=== PATIENT | female | born 1970 | race Two or more races ===

== ENCOUNTER 2020-03-13 08:51 | Outpatient (REF) | payer OTHER, SELFPAY ==
[2020-03-13 09:42] LABS: COVID-19 Test Positive (Negative); IDNOW Serial# 55D5AD1C
== END 2020-03-13 08:52 | disposition home or self-care (01) ==
LOC: HO.EMPCOV 08:51
PROVIDERS: PCP Internal Medicine; Visit Provider Internal Medicine
DX: Z20.828 Contact with and (suspected) exposure to other viral communicable diseases (principal)
CPT/HCPCS: 87635; C9803

== ENCOUNTER 2020-03-17 14:00 | Emergency (ER) | payer OTHER, SELFPAY ==
[2020-03-17] VITALS (7 sets, daily range): BP systolic 90–125; BP diastolic 50–92; PULSE 92–117; RESP 17–26; TEMP 36.8–39.4; O2SAT 94–99; BMI 30.4
--- NOTE | 2020-03-17 14:45 | XR_ITS ---
EXAMINATION: XR CHEST CLINICAL INFORMATION: Evaluate for pneumonia. COMPARISON: Most recent chest radiograph dated 12/26/2019. TECHNIQUE: Frontal view of the chest was obtained. FINDINGS: Minimal patchy airspace opacity within the right lower lung, slightly more prominent when compared to the prior examination. Findings may represent atelectasis versus very early infiltrate. No pleural effusion or pneumothorax. Stable cardiomediastinal silhouette. No acute osseous abnormality. XR/XR chest 1V IMPRESSION: Minimal patchy airspace opacity in the right lower lung, slightly more prominent when compared to the prior examination. This may represent atelectasis versus very early infiltrates.
--- NOTE | 2020-03-17 14:54 | ED_ITS ---
HPI - Fever General Chief Complaint: Fever Stated Complaint: covid positive Time Seen by Provider: 03/17/20 14:32 Source: patient Mode of arrival: ambulatory Limitations: no limitations History of Present Illness HPI Narrative: 49-year-old female previously healthy here with fever for 5 days. Patient tells me 5 days ago she was seen and had a COVID test. At that time she had generalized weakness, headache and fever. She was told she was COVID positive. Since then she has had intermittent fevers which does improve with Motrin and Tylenol but returns. She also has a cough, some shortness of breath with exertion, diarrhea and body aches. No chest pain, vomiting, abdominal pain, symptoms. MD elicited complaint: fever Onset (ago): day(s) Exacerbating factors: nothing Relieving factors: nothing Associated symptoms: chills, myalgias, headache, cough, shortness of breath and diarrhea Treatments prior to arrival fever: none Related Data Home Medications Medication Instructions Recorded Confirmed buspirone 1 tab PO DAILY PRN 03/17/20 03/17/20 levothyroxine 1 tab PO QAM 03/17/20 03/17/20 Previous Rx's Medication Instructions Recorded azithromycin 250 mg PO DAILY 4 Days #4 tab 03/17/20 cefdinir 300 mg PO BID #14 cap 03/17/20 Allergies Allergy/AdvReac Type Severity Reaction Status Date / Time escitalopram [From Lexapro] Allergy Unknown palp Verified 02/23/20 12:24 Review of Systems Review of Systems: Yes all other systems are reviewed and are negative Constitutional: Constitutional: Reports no additional constitutional complaints, Reports body ache(s), Reports chills, Reports fever(s), Reports headache(s) and Reports weakness Eyes: Eyes: Reports no additional eye complaints and Denies change in vision ENT: Reports system reviewed and no additional complaints, except as documented, Denies dizziness, Reports headache(s), Denies nasal congestion, Denies nasal discharge and Denies neck pain Cardiovascular: Cardiovascular: Reports no additional cardiovascular complaints, Denies chest pain, Denies leg edema and Denies dyspnea Respiratory: Respiratory: Reports no additional respiratory complaints, Reports cough and Denies dyspnea Gastrointestinal: Gastrointestinal: Reports no additional gastrointestinal complaints, Denies abdominal pain, Reports diarrhea, Denies nausea and Denies vomiting Genitourinary: Genitourinary: Reports no additional female genitourinary complaints and Denies urinary incontinence Musculoskeletal: Musculoskeletal: Reports no additional musculoskeletal complaints, Denies back pain, Denies arthralgias, Denies joint swelling, Denies neck pain, Denies numbness and Denies tingling Integumentary/Breasts: Skin/Breast: Reports system reviewed and no additional complaints, except as docu and Denies rash Neurologic: Reports system reviewed and no additional complaints, except as documented, Denies Abnormal speech present, Denies dizziness, Reports headache(s), Denies numbness, Denies tingling and Reports weakness [facility] Past Medical History Surgical History (Updated 02/23/20 @ 12:26 by Rosmery Florian, JESS, JESSE) History of bilateral breast reduction surgery History of endometrial ablation Family History Family History (Updated 02/23/20 @ 12:30 by Rosmery Florian, JESS, JESSE) Father Colon cancer Mother HTN (hypertension) CVD (cardiovascular disease) Maternal Grandfather No problems noted. Maternal Grandmother No problems noted. Paternal Grandmother No problems noted. Paternal Grandfather No problems noted. Maternal Aunt Ovarian cancer Maternal Uncle Diabetes mellitus Son No problems noted. Son No problems noted. Son No problems noted. Sister No problems noted. Sister No problems noted. Brother No problems noted. Brother No problems noted. Brother No problems noted. Brother No problems noted. Social History Social History Alcohol intake: never Smoking Status: Never smoker Use of substances other than those prescribed or required for medical reasons: No Advance Directives: No Advance Directives Information Provided: Yes Physical Exam Vital Signs: Vital Signs: Last Vital Signs Temp 99.9 F 03/17/20 16:57 Pulse 103 H 03/17/20 16:57 Resp 20 03/17/20 16:57 BP 96/53 L 03/17/20 16:57 Pulse Ox 97 03/17/20 16:57 Body Mass Index 30.4 Const: General: cooperative, healthy appearing, comfortable and no acute distress Orientation/consciousness: patient oriented x3 Limitations: no l imitations HENMT: Head: Yes normal to inspection Ears: hearing grossly normal bilaterally General nose exam: Normal external nose present Face and sinus: Yes normal facial exam Mouth: Normal oral and palatal mucosa present Throat: Yes posterior oropharynx normal Eyes: General: appearance normal, both eyes and all related structures Pupils: Equal, round and reactive pupils present Neck: Neck: Yes normal visual inspection Chest: Chest palpation & inspection: normal inspection of the chest Resp: Effort & Inspection: normal respiratory effort Auscultation: clear to auscultation bilaterally Cardio: Rate: tachycardic Rhythm: regular rhythm Peripheral pulses: Peripheral pulses 2+ throughout GI: Inspection: Yes normal to inspection Palpation (GI): Soft to palpation and nontender Auscultation: normal bowel sounds Back/Spine/Pelvis: Thoracic/Lumbar Spine: thoracic and lumbar spine normal to inspection Skin: General skin exam: no rashes or lesions noted Neuro: General: patient oriented x3, no focal motor deficits and normal sensation to monofilament Cranial nerves: Yes Equal, round and reactive pupils present Cognition (Neuro): normal cognition Speech: No Abnormal speech present Gait exam (Neuro): Normal gait present Motor exam (neuro): 5/5 motor strength present throughout Extrem: General: Yes normal to inspection Course Course Course Narrative: 49-year-old female who is known COVID positive here with fever x5 days. On arrival the patient is febrile and tachycardic which is likely secondary to viral COVID infection. Will check chest x-ray to rule out underlying pneumonia. Will check labs, give normal saline bolus an antipyretic and reassessed. 1520- x-ray consistent with pneumonia. at this time infection is suspected. Patient received ceftriaxone and azithromycin. Labs are unremarkable. 1700- patient is feeling improved. Heart rate and temp improving. The an tibiotics were still infusing. Plan is for ambulation trial with pulse ox prior to discharge home. Sign-out to Jaspreet DOMÍNGUEZ pending above MDM - Fever Medical Records Attestation: I reviewed the patient's medical records. Lab Data Attestation: I reviewed the patient's lab results. Result diagrams: 03/17/20 15:49 03/17/20 15:49 Labs: Lab Results 03/17/20 03/17/20 03/17/20 Range/Units 15:49 15:49 15:49 WBC 3.5 L (4.8-10.8) X10*3/uL RBC 5.22 (4.20-5.50) X10*6/uL Hgb 15.0 (12.0-16.0) g/dl Hct 44.0 (37-47) % MCV 84.3 (80-98) fL MCH 28.7 (27.0-33.0) pg MCHC 34.1 (31.0-35.0) g/dl RDW 12.1 (11.0-16.0) % Plt Count 177 (160-400) X10*3/uL MPV 9.8 (9.4-12.3) fL Immature Gran % (Auto) 0.3 (0.0-0.4) % Neut % (Auto) 62.1 (45-73) % Lymph % (Auto) 33.6 (20-40) % [place] % (Auto) 3.7 (2-11) % Eos % (Auto) 0.3 (0-4) % Baso % (Auto) 0.0 (0-2) % Lymph # (Auto) 1.2 (1.2-4.9) X10*3/uL [place] # (Auto) 0.1 (0.1-1.2) X10*3/uL Eos # (Auto) 0.0 (0.0-0.4) X10*3/uL Baso # (Auto) 0.0 (0.0-0.2) X10*3/uL Abs Immat Gran (auto) 0.01 (0.00-0.03) X10*3/uL Absolute Neuts (auto) 2.2 (2.0-8.3) X10*3/uL Absolute Nucleated RBC 0.000 (0.0-0.012) X10*3/uL Nucleated RBC % (auto) 0.0 (0.0-0.2) /100WBC Sodium 137 (135-145) mmol/L Potassium 4.0 (3.3-5.1) mmol/l Chloride 102 (96-108) mmol/L Carbon Dioxide 24 (22-29) mmol/L Anion Gap 15 (12-20) BUN 9 (9-16) mg/dL Creatinine 0.81 (0.5-1.4) mg/dL Estim Creat Clear Calc 101.2 Estimated GFR > 60 Random Glucose 83 (60-115) mg/dL Lactic Acid 1.2 (0.5-2.0) mmol/L Calcium 8.3 L (8.4-10.2) mg/dL Magnesium 2.0 (1.6-2.6) mg/dL Total Bilirubin 0.2 (0.0-1.0) mg/dL Direct Bilirubin < 0.2 (0.0-0.5) mg/dL AST 22 (5-31) U/L ALT 16 (0-31) U/L Alkaline Phosphatase 68 (39-117) U/L Total Protein 7.0 (6.5-8.0) g/dL Albumin 4.0 (3.5-5.0) g/dL Imaging Data Chest x-ray: Attestation: I personally reviewed and interpreted this imaging study as follows: Radiologist's impression: EXAMINATION: XR CHEST CLINICAL INFORMATION: Evaluate for pneumonia. COMPARISON: Most recent chest radiograph dated 12/26/2019. TECHNIQUE: Frontal view of the chest was obtained. FINDINGS: Minimal patchy airspace opacity within the right lower lung, slightly more prominent when compared to the prior examination. Findings may represent atelectasis versus very early infiltrate. No pleural effusion or pneumothorax. Stable cardiomediastinal silhouette. No acute osseous abnormality. XR/XR chest 1V IMPRESSION: Minimal patchy airspace opacity in the right lower lung, slightly more prominent when compared to the prior examination. This may represent atelectasis versus very early infiltrates. Discharge Plan Discharge Clinical Impression: Pneumonia Patient Disposition: Home, Self-Care Instructions: Bacterial Pneumonia (ED) Additional Instructions: start your medications tomorrow Take Motrin or Tylenol if able as needed for fever or pain Increase fluids, rest Prescriptions: New azithromycin 250 mg tablet 250 mg PO DAILY 4 Days Qty: 4 RF: 0 cefdinir 300 mg capsule 300 mg PO BID Qty: 14 RF: 0 No Action levothyroxine 150 mcg tablet 1 tab PO QAM RF: 0 buspirone 5 mg tablet 1 tab PO DAILY PRN (Reason: anxiety) RF: 0 Referrals: Physician,Unknown [Primary Care Provider] - 2 days Stand Alone Forms: Work/School Release
[2020-03-17] MEDS: Ketorolac Tromethamine 30 MG/ML VIAL IVPUSH (15:56)
[2020-03-17] MEDS: 0.9 % Sodium Chloride 1,000 ML 999 ML IV (15:56)
[2020-03-17] MEDS: Acetaminophen 325 MG TABLET 975 MG PO (15:56)
[2020-03-17 16:04] LABS: MANUAL DIFF FLAG NO
[2020-03-17 16:07] LABS: Eosinophils Percent Auto 0.3 % (0-4); Imm Gran Abs Auto 0.01 X10*3/uL (0.00-0.03); Imm Gran Pct Auto 0.3 % (0.0-0.4); Lymphocytes Absolute Auto 1.2 X10*3/uL (1.2-4.9); Lymphocytes Percent Auto 33.6 % (20-40); Mean Corpuscular HGB Conc 34.1 g/dl (31.0-35.0); Mean Corpuscular Hemoglobin 28.7 pg (27.0-33.0); Mean Corpuscular Volume 84.3 fL (80-98); Mean Platelet Volume 9.8 fL (9.4-12.3); Monocytes Absolute Auto 0.1 X10*3/uL (0.1-1.2); Monocytes Percent Auto 3.7 % (2-11); Neutrophils Absolute Auto 2.2 X10*3/uL (2.0-8.3); Neutrophils Percent Auto 62.1 % (45-73); Platelet Count 177 X10*3/uL (160-400); Red Blood Count 5.22 X10*6/uL (4.20-5.50); Red Cell Distribution Width 12.1 % (11.0-16.0); White Blood Count 3.5 X10*3/uL (4.8-10.8)
[2020-03-17] MEDS: cefTRIAXone sodium 1 GM in 0.9 % Sodium Chloride 50 ML IV (16:07)
[2020-03-17 16:32] LABS: Lactic Acid 1.2 mmol/L (0.5-2.0)
[2020-03-17 16:37] LABS: Alanine Aminotransferase 16 U/L (0-31); Alkaline Phosphatase 68 U/L (39-117); Anion Gap 15 (12-20); Aspartate Amino Transferase 22 U/L (5-31); Bilirubin Direct < 0.2 mg/dL (0.0-0.5); Bilirubin Total 0.2 mg/dL (0.0-1.0); Blood Urea Nitrogen 9 mg/dL (9-16); Calcium 8.3 mg/dL (8.4-10.2); Carbon Dioxide 24 mmol/L (22-29); Chloride 102 mmol/L (96-108); Creatinine Clr Calc Pharmacy 101.2; Estimated Glomerular Filt Rate > 60; Glucose Random 83 mg/dL (60-115); Sodium 137 mmol/L (135-145)
[2020-03-17] MEDS: Azithromycin 500 MG in 0.9 % Sodium Chloride 250 ML 125 MG IV (16:51)
[2020-03-17] MEDS: 0.9 % Sodium Chloride 1,000 ML 999 ML IVCONT ×2 (20:05)
== END 2020-03-17 21:44 | disposition home or self-care (01) ==
PROVIDERS: Nurse Practitioner Family; Emergency Provider Emergency Medicine
DX: J18.9 Pneumonia, unspecified organism (principal); R50.9 Fever, unspecified; Z79.899 Other long term (current) drug therapy; Z20.828 Contact with and (suspected) exposure to other viral communicable diseases
CPT/HCPCS: 36415; 71045; 80048; 80076; 83605; 83735; 85025; 87040; 96361; 96365; 96375; 99284; J0456; J0696; J1885

== ENCOUNTER 2020-03-26 10:30 | Outpatient (REF) | payer OTHER, SELFPAY ==
--- NOTE | 2020-03-26 10:34 | XR_ITS ---
EXAMINATION: XR CHEST CLINICAL INFORMATION: Pneumonia. COMPARISON: Chest 03/17/2020 TECHNIQUE: 2 views of the chest were obtained. FINDINGS: The lungs are well-expanded with bibasilar patchy opacity suggestive of small pneumonic infiltrate. It is new since 03/17/2020 exam. The upper lungs are clear. The heart size and pulmonary vascularity is normal. No gross bony abnormality seen. XR/XR chest 2V IMPRESSION: Bilateral lower lobe infiltrates.
== END 2020-03-26 10:31 | disposition home or self-care (01) ==
LOC: HO.HMGCX 10:30
PROVIDERS: PCP Internal Medicine; Visit Provider Internal Medicine
DX: J18.9 Pneumonia, unspecified organism (principal)
CPT/HCPCS: 71046

== ENCOUNTER 2020-04-08 14:13 | Outpatient (REF) | payer OTHER, SELFPAY ==
--- NOTE | 2020-04-08 14:17 | XR_ITS ---
EXAMINATION: CHEST 2 VIEWS CLINICAL INFORMATION: Concern for pneumonia. COMPARISON: March 26, 2020. TECHNIQUE: PA and lateral views of the chest were obtained. FINDINGS: The cardiac silhouette is not enlarged. The mediastinal and hilar contours are unremarkable. There are neither pleural effusions nor pneumothoraces. There is improved aeration with persistent right lower lobe patchy airspace disease. The osseous structures are stable. XR/XR chest 2V IMPRESSION: Improved aeration with persistent patchy right lower lobe airspace disease. Continued follow-up to resolution is recommended.
== END 2020-04-08 14:14 | disposition home or self-care (01) ==
LOC: HO.HMGCX 14:13
PROVIDERS: PCP Internal Medicine; Visit Provider Internal Medicine
DX: J18.9 Pneumonia, unspecified organism (principal)
CPT/HCPCS: 71046

== ENCOUNTER 2020-04-24 11:38 | Outpatient (REF) | payer OTHER, SELFPAY ==
--- NOTE | 2020-04-24 11:48 | XR_ITS ---
EXAMINATION: XR CHEST CLINICAL INFORMATION: Pneumonia COMPARISON: Previous chest x-rays from earlier this month TECHNIQUE: 2 views of the chest were obtained. FINDINGS: The cardiac and mediastinal contours are normal. The previously identified bilateral lower lobe infiltrates are no longer seen. The lungs are clear. There is no pleural effusion or pneumothorax. There are degenerative changes of the spine. XR/XR chest 2V IMPRESSION: Resolved bilateral lower lobe infiltrates.
== END 2020-04-24 11:39 | disposition home or self-care (01) ==
LOC: HO.HMGCX 11:38
PROVIDERS: PCP Internal Medicine; Visit Provider Internal Medicine
DX: J18.9 Pneumonia, unspecified organism (principal)
CPT/HCPCS: 71046

== ENCOUNTER 2020-06-11 13:07 | Outpatient (REF) | payer OTHER, SELFPAY ==
[2020-06-12 09:22] LABS: BV Int Neg Control Negative (Negative); BV Int Pos Control Positive (Positive)
[2020-06-12 17:36] LABS: C. trachomatis RNA TMA NOT DETECTED (NOT DETECTED); N. gonorrhoeae RNA TMA NOT DETECTED (NOT DETECTED)
[2020-06-14 05:02] LABS: HPV mRNA E6/E7 rflx Not Detected (Not Detected)
== END 2020-06-11 13:08 | disposition home or self-care (01) ==
LOC: HO.LAB 13:07
PROVIDERS: PCP Internal Medicine; Visit Provider Obstetrics & Gynecology
DX: Z01.419 Encounter for gynecological examination (general) (routine) without abnormal findings (principal); Z11.51 Encounter for screening for human papillomavirus (HPV); N76.0 Acute vaginitis; B96.89 Other specified bacterial agents as the cause of diseases classified elsewhere; Z20.2 Contact with and (suspected) exposure to infections with a predominantly sexual mode of transmission
CPT/HCPCS: 36415; 87480; 87491; 87510; 87591; 87624; 87660; 88142

== ENCOUNTER 2020-06-21 09:37 | Outpatient (REF) | payer OTHER, SELFPAY ==
[2020-06-21 10:53] LABS: Cholesterol 184 mg/dL; HDL Cholesterol 36 mg/dL; LDL Cholesterol Calculated 128 mg/dl; Triglycerides 104 mg/dL
[2020-06-21 11:34] LABS: Thyroid Stimulating Hormone 0.17 uIU/mL (0.32-4.0)
[2020-06-22 18:07] LABS: C. trachomatis RNA TMA NOT DETECTED (NOT DETECTED); N. gonorrhoeae RNA TMA NOT DETECTED (NOT DETECTED)
== END 2020-06-21 09:38 | disposition home or self-care (01) ==
LOC: HO.LAB 09:37
PROVIDERS: PCP Internal Medicine; Visit Provider Obstetrics & Gynecology
DX: E78.1 Pure hyperglyceridemia (principal); E03.9 Hypothyroidism, unspecified
CPT/HCPCS: 36415; 80061; 84443; 87491; 87591

== ENCOUNTER 2020-06-24 14:03 | Outpatient (REF) | payer OTHER, SELFPAY ==
--- NOTE | ~2020-06-24 | XR_ITS ---
EXAMINATION: XR BILATERAL HIPS WITH AP PELVIS CLINICAL INFORMATION: Bilateral hip pain COMPARISON: None TECHNIQUE: AP view of the pelvis and single views of each hip were obtained. FINDINGS: There is bilateral hip arthritis with joint space narrowing and osteophyte formation. No fracture, dislocation or bone lesion is seen. Soft tissues are unremarkable. XR/XR hips STAR min 3V IMPRESSION: Bilateral hip arthritis.
[2020-06-24 16:43] LABS: Rheumatoid Factor < 15.0 IU/mL (<15.0)
[2020-06-24 17:48] LABS: Erythrocyte Sedimentation Rate 12 MM/HR (0-20)
[2020-06-27 14:51] LABS: Cyclic Citrullinated Peptide <16 UNITS
== END 2020-06-24 14:04 | disposition home or self-care (01) ==
LOC: HO.HMGCX 14:03
PROVIDERS: PCP Internal Medicine; Visit Provider Internal Medicine
DX: M19.90 Unspecified osteoarthritis, unspecified site (principal); M25.551 Pain in right hip; M25.552 Pain in left hip
CPT/HCPCS: 36415; 73522; 85652; 86200; 86431

== ENCOUNTER → 2020-07-05 09:30 | Outpatient (BNVA) | payer OTHER, SELFPAY | PROVIDERS: PCP Internal Medicine; Visit Provider Nurse Practitioner ==

== ENCOUNTER → 2020-07-21 20:19 | Outpatient (REF) | payer OTHER, SELFPAY | LOC: HO.SL 20:19 | PROVIDERS: PCP Internal Medicine; Visit Provider Internal Medicine | DX: G47.33 Obstructive sleep apnea (adult) (pediatric) (principal) | CPT/HCPCS: 95810 ==

== ENCOUNTER 2020-07-30 08:52 | Day surgery (SDC) | payer OTHER, SELFPAY ==
[2020-07-24 10:48] VITALS: BMI 30.4
--- NOTE | 2020-07-29 09:04 | HO.ANESPROP2 ---
Documented by User: Amelia Marcus 07/29/20 09:08 HPI - Anesthesia Eval Consult details Narrative: 49yo F for Colonoscopy PMFSH Active Problems Active Problems: All Active Problems (Updated 07/24/20 @ 11:16 by Mary Kennedy) Hypothyroidism (Acute) Hypertriglyceridemia (Acute) Annual physical exam (Acute) Rectal spasm (Acute) Hip pain (Acute) Arthritis (Acute) GRAEME (obstructive sleep apnea) (Acute) Pneumonia (Acute) Past Medical History Medical History Anxiety Arthritis Depression GERD (gastroesophageal reflux disease) Hip pain History of COVID-19 History of ectopic Hypothyroid GRAEME (obstructive sleep apnea) Pneumonia RLS (restless legs syndrome) Family History Family History Father Colon cancer Mother CVD (cardiovascular disease) Rheumatoid arthritis Thyroid condition Maternal Grandfather No problems noted. Maternal Grandmother HTN (hypertension) Diabetes mellitus CVD (cardiovascular disease) Alzheimers disease Thyroid condition Paternal Grandmother No problems noted. Paternal Grandfather No problems noted. Maternal Aunt Ovarian cancer Breast cancer Thyroid condition Maternal Uncle Diabetes mellitus Son No problems noted. Son No problems noted. Son No problems noted. Sister No problems noted. Sister No problems noted. Brother No problems noted. Brother No problems noted. Brother No problems noted. Brother No problems noted. Surgical History Surgical History History of bilateral breast reduction surgery History of bilateral salpingectomy History of endometrial ablation History of esophagogastroduodenoscopy (EGD) History of reversal of tubal ligation History of right oophorectomy History of tubal ligation Social History Social History Are you a primary administrator health care facility to a significant other at home: No Do you presently have visiting nurse or other home services: No Alcohol intake: never Smoking Status: Never smoker Use of substances other than those prescribed or required for medical reasons: No Have you been hit, kicked, punched, or otherwise hurt by someone within the past year? If so, by whom?: No Advance Directives: No Advance Directives Information Provided: No Advance Directives on File: No Recently lost weight without trying: No Sexual orientation: Straight/Heterosexual Gender identity: female Meds Allergies Allergy/AdvReac Type Severity Reaction Status Date / Time escitalopram [From Lexapro] Allergy Unknown Palpitation Verified 07/24/20 10:47 s Home Medications Medication Instructions Recorded Confirmed Last Taken Type biotin 1 mg capsule 1 mg PO DAILY 06/24/20 07/24/20 Unknown History Exam Exam Date and Time: July 29, 2020903 Height,Weight and Vital Signs: Height 5 ft 8 in Weight 90.718 kg Pertinent Lab Results Pertinent Lab Results: Laboratory Tests 03/17/20 03/17/20 15:49 15:49 WBC 3.5 L Hgb 15.0 Hct 44.0 Plt Count 177 Sodium 137 Potassium 4.0 Chloride 102 Carbon Dioxide 24 BUN 9 Creatinine 0.81 Assessment and Plan Assessment Anesthesia Assessment: Chart Reviewed Documented by User: Dang Snider 07/30/20 10:53 [facility] Past Medical History Medical History Anxiety Arthritis Depression GERD (gastroesophageal reflux disease) Hip pain History of COVID-19 History of ectopic Hypothyroid GRAEME (obstructive sleep apnea) Pneumonia RLS (restless legs syndrome) Family History Family History Father Colon cancer Mother CVD (cardiovascular disease) Rheumatoid arthritis Thyroid condition Maternal Grandfather No problems noted. Maternal Grandmother HTN (hypertension) Diabetes mellitus CVD (cardiovascular disease) Alzheimers disease Thyroid condition Paternal Grandmother No problems noted. Paternal Grandfather No problems noted. Maternal Aunt Ovarian cancer Breast cancer Thyroid condition Maternal Uncle Diabetes mellitus Son No problems noted. Son No problems noted. Son No problems noted. Sister No problems noted. Sister No problems noted. Brother No problems noted. Brother No problems noted. Brother No problems noted. Brother No problems noted. Family history of problems with anesthesia: No Surgical History Surgical History History of bilateral breast reduction surgery History of bilateral salpingectomy History of endometrial ablation History of esophagogastroduodenoscopy (EGD) History of reversal of tubal ligation History of right oophorectomy History of tubal ligation History of Problems with Anesthesia: Yes (Uncontollable tremors after one of her surgeries. Was treated with benadryl.) Social History Social History Are you a primary administrator health care facility to a significant other at home: No Do you presently have visiting nurse or other home services: No Alcohol intake: never Smoking Status: Never smoker Use of substances other than those prescribed or required for medical reasons: No Have you been hit, kicked, punched, or otherwise hurt by someone within the past year? If so, by whom?: No Advance Directives: No Advance Directives Information Provided: No Advance Directives on File: No Recently lost weight without trying: No Sexual orientation: Straight/Heterosexual Gender identity: female Meds Allergies Allergy/AdvReac Type Severity Reaction Status Date / Time escitalopram [From Lexapro] Allergy Unknown Palpitation Verified 07/24/20 10:47 s Home Medications Medication Instructions Recorded Confirmed Last Taken Type biotin 1 mg capsule 1 mg PO DAILY 06/24/20 07/24/20 Unknown History Exam Height,Weight and Vital Signs: Vital Signs Temp Pulse Resp BP Pulse Ox 07/30/20 09:23 97.7 F 92 16 116/80 98 Airway Mallampati Class: II TM Dist: >3cm Neck ROM: Full Heart: RRR Lungs: CTAB Assessment and Plan Assessment Anesthesia Assessment: Anesthesia Plan Discussed and Chart Reviewed Final Anesthetic Review NPO: Yes ASA Class: III Final Preanesthetic Review: No Changes in Pt Med Stat, Meds/Allgs Chart Reviewed, Consent Obtained/Reviewed and Anes Risks/Benef Reviewed Patient Risk: Intermediate Procedure Risk: Low Assessment/Block/Sedation in SS: Assess/Block/Sedation-SS Anesthetic Plan Anesthetic Plan: MAC: Disposition: Standard PACU
[2020-07-30 09:23] VITALS: BP 116/80; PULSE 92; RESP 16; TEMP 36.5; O2SAT 98
[2020-07-30] MEDS: Lactated Ringers 1,000 ML 100 ML IVCONT (09:27)
--- NOTE | 2020-07-30 09:30 | PC.NURSE ---
UCG not done, patient has had bilateral salpingectomy
--- NOTE | 2020-07-30 10:38 | MHC.SHP ---
Pre-Procedural Eval Section B Chief Complaint: (anal spasm);Colon cancer screening + family hx Allergies: Allergies Allergy/AdvReac Type Severity Reaction Status Date / Time escitalopram [From Lexapro] Allergy Unknown Palpitation Verified 07/24/20 10:47 s Plan I have reviewed the history and physical and performed a pertinent physical examination on my patient. No changes have occurred unless specified .YES
[2020-07-30 12:09] VITALS: BP 98/50; PULSE 84; RESP 12; TEMP 36.8; O2SAT 97
--- NOTE | 2020-07-30 12:16 | P.BOP_ITS ---
Brief Operative Note Date of Service: 07/30/20 Pre-op diagnosis: COLON CANCER SCREENING--POSITIVE FAMILY HX-FATHER. Post-op diagnosis: other (MULTIPLE POLYPS --1 >2CM @ 45CM) Procedure: COLONOSCOPY WITH HSPX3,COLD SNARE POLYPECTOMY X3. EPI INJECTION 2 SITES -TOTAL 4 CC, ENDOMARK 2 SITES-TOTAL 3 CC. START TIME: 10:29-END TIME: 11:58 AM. COMPLEX PROCEDURE. MULTIPLE POLYPS AND INTERVENTIONAL TECHNIQUES. ERBE CAUTERY USED. Implants: NONE Surgeon: Nithya Arce MD Anesthesia: MAC (CHAZ,THAO) Estimated blood loss (mL): 10 Pathology: other (A. TRANSVERSE COLON, B. HEPATIC FLEX(prox side.); C. 45cm- Large 2cm with stalk; D. 45cm-smaller polyp, e. Diminutive polyp.) Condition: stable Disposition: PACU
[2020-07-30 12:22] VITALS: BP 117/73; PULSE 74; RESP 16; O2SAT 98
--- NOTE | 2020-07-30 12:47 | W.PM.OPN ---
Operative Note Operative Note Date of Service: 07/30/20 Narrative: Pre-op diagnosis: COLON CANCER SCREENING--POSITIVE FAMILY HX-FATHER(dx @ 69) Post-op diagnosis: other (MULTIPLE POLYPS --1 >2CM @ 45CM) Procedure: COLONOSCOPY WITH HSPX3,COLD SNARE POLYPECTOMY X3. EPI INJECTION 2 SITES -TOTAL 4 CC, ENDOMARK 2 SITES-TOTAL 3 CC. START TIME: 10:29-END TIME: 11:58 AM. COMPLEX PROCEDURE. MULTIPLE POLYPS AND INTERVENTIONAL TECHNIQUES. ERBE CAUTERY USED. Implants: NONE Surgeon: Nithya Arce MD Anesthesia: MAC (CHAZ,THAO) FINDINGS: CATHY-NORMAL SPHINCTER TONE ADULT SLIM COLONOSCOPE WAS INTRODUCED WITHOUT DIFFICULTY AT ABOUT 40-50CM A LARGE POLYP WAS NOTED. APPEARED TO BE ON A STALK. DECISION WAS TO COMPLETE PROCEDURE AND RETURN TO THAT AREA ON WITHDRAWAL. SCOPE ADVANCED INTO DESCENDING AND TRANSVERSE-DIMINUTIVE POLYP REMOVED IN TRANSVERSE COLON. SCOPE HAD SOME SIGNIFICANT REDUNDANCY IN THIS AREA. EXTRINSIC ABDOMINAL PRESSURE WAS APPLIED AND I WAS ABLE TO GET INTO ASCENDING COLON AND PROCEED INTO THE CECAL CAP. APPENDICEAL ORIFICE AND ILEOCECAL VALVE WERE IDENTIFIED. SLOW WITHDRAWAL OF SCOPE EDGE OF POLYP NOTED IN FOLD OF HEPATIC FLEXURE. POSITION THIS POLYP WAS DIFFICULT. ULTIMATELY ABLE TO REMOVE WITH THE HEXAGONAL SNARE-HOT CAUTERY (ERBE), POLYP RETRIEVED. PULL THROUGH THE TRANSVERSE COLON WAS UNREMARKABLE. LARGER POLYP. PREVIOUSLY SEEN, WAS LOCATED @ 45CM. EPI INJECTION/ENDO MAKING DONE. REMOVED IN ONE PIECE WITH HSP TECHNIQUE, RETRIEVED WITH [employer]. 2 OTHER SMALLER POLYPS WERE REMOVED IN THIS AREA EXCISIONALLY AND SUBMITED SEPARATE SPEC SMALL.; DIMINUTIVE POLYP IN RECTUM REMOVED. ARV WAS CLEAR. Estimated blood loss (mL): 10 Pathology: A. TRANSVERSE COLON(Hyperplastic), B. HEPATIC FLEX(prox side.)--Tubular adenoma; C. 45cm-Large 2cm with stalk--TUBULOVILLOUS ADENOMA NO DYSPLASIA; D. 45cm-smaller polyp--TUBULOVILLOUS adenoma, E. Diminutive polyp--Hyperplastic. Pathology of specimen added prior to signing. Condition: stable Disposition: PACU PLAN; REPEAT SCREENING SHOULD BE 3 YEARS[address] PATH ON THE LARGEST POLYP was TUBULOVILLOUS ADENOMA BUT NO DYSPLASIA. PATIENT'S CHILDREN SHOULD HAVE THEIR FIRST COLONOSCOPY AROUND AGE 35. I REVIEWED ALL OF THIS WITH THE PATIENT AFTER THE PROCEDURE. 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
== END 2020-07-30 13:15 | disposition home or self-care (01) ==
PROVIDERS: PCP Internal Medicine; Visit Provider Internal Medicine Gastroenterology
PROC: 0DJD8ZZ Inspection of Lower Intestinal Tract, Via Natural or Artificial Opening Endoscopic (ICD-10-PCS; CPT 45378; principal; 2020-07-30 10:00)
DX: Z12.11 Encounter for screening for malignant neoplasm of colon (principal); K59.4 Anal spasm; Z80.0 Family history of malignant neoplasm of digestive organs; D12.3 Benign neoplasm of transverse colon; D12.5 Benign neoplasm of sigmoid colon; K62.1 Rectal polyp; K21.9 Gastro-esophageal reflux disease without esophagitis; G47.33 Obstructive sleep apnea (adult) (pediatric); Z86.16 Personal history of COVID-19; Z79.899 Other long term (current) drug therapy; Z88.8 Allergy status to other drugs, medicaments and biological substances
CPT/HCPCS: 45385; 45380; 45381; 88305; J0171

== ENCOUNTER → 2020-08-14 11:51 | Outpatient (BNVA) | payer OTHER, SELFPAY | PROVIDERS: PCP Internal Medicine; Visit Provider Nurse Practitioner ==

== ENCOUNTER → 2020-09-03 11:37 | Outpatient (BNVA) | payer OTHER, SELFPAY | PROVIDERS: PCP Internal Medicine; Visit Provider Nurse Practitioner ==

== ENCOUNTER 2020-11-21 15:43 | Outpatient (REF) | payer OTHER, SELFPAY ==
--- NOTE | ~2020-11-21 | MM_ITS ---
EXAMINATION: MM SCREENING DIGITAL BREAST TOMOSYNTHESIS, BILATERAL CLINICAL INFORMATION: Screening. Asymptomatic. Prior history breast reduction 2012. The lifetime risk of breast cancer based on the Tyrer-Cuzick Model is 9%. COMPARISON: Outside mammography: 01/15/2017, 12/28/2014 ([facility], [place]). TECHNIQUE: Digital breast tomosynthesis is performed in both the craniocaudal and mediolateral oblique views along with computer-aided detection (CAD). Synthesized 2D images are generated from the tomosynthesis. Additional left CC view is provided. FINDINGS: There are scattered areas of fibroglandular density (ACR BI-RADS breast composition Category b). Parenchymal pattern is similar to prior studies. There is some minor scarring similar to prior studies consistent with the reduction mammoplasty. There is no interval mass or architectural abnormality or developing density. No abnormal calcifications. The axilla and skin contours are unremarkable. MM/MM tomosynthesis screening BI IMPRESSION: No mammographic evidence of malignancy. ASSESSMENT: BI-RADS 2: Benign RECOMMENDATION: Routine annual mammography screening. This patient's information was entered into a reminder system with a target due date for their next mammogram.
== END 2020-11-21 15:44 | disposition home or self-care (01) ==
LOC: HO.MAMMO 15:43
PROVIDERS: Visit Provider Obstetrics & Gynecology
DX: Z12.31 Encounter for screening mammogram for malignant neoplasm of breast (principal)
CPT/HCPCS: 77063; 77067

== ENCOUNTER → 2020-12-17 13:08 | Outpatient (BNVA) | payer OTHER, SELFPAY | PROVIDERS: PCP Internal Medicine; Visit Provider Nurse Practitioner ==

== ENCOUNTER 2021-04-22 10:02 | Emergency (ER) | payer OTHER, SELFPAY ==
--- NOTE | ~2021-04-22 | XR_ITS ---
EXAMINATION: XR CHEST CLINICAL INFORMATION: Chest burning/back pain. COMPARISON: Chest 04/24/2020. TECHNIQUE: Frontal view of the chest was obtained. FINDINGS: No significant abnormality is noted involving the heart, lungs, mediastinum, bony thorax or soft tissues. XR/XR chest 1V IMPRESSION: Unremarkable examination.
--- NOTE | 2021-04-22 08:00 | ECG_ITS ---
Test Reason : chest burning Blood Pressure : / mmHG Vent. Rate : 087 BPM Atrial Rate : 087 BPM P-R Int : 148 ms QRS Dur : 080 ms QT Int : 388 ms P-R-T Axes : 052 039 033 degrees QTc Int : 466 ms Normal sinus rhythm Normal ECG No previous ECGs available Referred By: Jaya Boss Electronically Signed By:Chidi Ward
[2021-04-22 10:19] VITALS: BP 143/84; PULSE 90; RESP 19; TEMP 37.2; O2SAT 98; BMI 31.1
[2021-04-22 11:36] VITALS: BP 107/75; PULSE 81; RESP 18; TEMP 36.9; O2SAT 98
--- NOTE | 2021-04-22 11:37 | PC.NURSE ---
patient a&ox3, pt c/o lethargy, burning in her chest and back pain, 11/02, patient awaiting provider to see them, will continue to monitor.
--- NOTE | 2021-04-22 12:14 | PC.NURSE ---
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
[2021-04-22 12:19] LABS: MANUAL DIFF FLAG NO
[2021-04-22 12:20] LABS: Basophils Percent Auto 0.2 % (0-2); Eosinophils Absolute Auto 0.2 X10*3/uL (0.0-0.4); Eosinophils Percent Auto 2.9 % (0-4); Hematocrit 40.6 % (37.0-47.0); Hemoglobin 13.8 g/dl (12.0-16.0); Imm Gran Abs Auto 0.02 X10*3/uL (0.00-0.03); Imm Gran Pct Auto 0.3 % (0.0-0.4); Lymphocytes Absolute Auto 2.1 X10*3/uL (1.2-4.9); Lymphocytes Percent Auto 31.9 % (20-40); Mean Corpuscular Hemoglobin 29.3 pg (27.0-33.0); Mean Corpuscular Volume 86.2 fL (80.0-98.0); Mean Platelet Volume 9.6 fL (9.4-12.3); Monocytes Absolute Auto 0.6 X10*3/uL (0.1-1.2); Monocytes Percent Auto 8.7 % (2-11); Neutrophils Absolute Auto 3.7 x10*3/uL (2.0-8.3); Platelet Count 251 X10*3/uL (160-400); Red Blood Count 4.71 X10*6/uL (4.20-5.50); White Blood Count 6.6 X10*3/uL (4.8-10.8)
[2021-04-22 12:21] LABS: Appearance Urine HAZY; Color Urine YELLOW; Glucose Urine UA NEG (NEG); Leukocyte Esterase Urine NEG (NEG); Nitrite Urine NEG (NEG); Specific Gravity - Urine <= 1.005 (1.005-1.025); UACC Culture Trigger NO; Urine Blood 1+ (NEG); Urine Ketones NEG (NEG); Urine Protein NEG (NEG-TRACE)
[2021-04-22 12:29] LABS: Squamous Epithelial Cell Urine 1+ /LPF; WBC Urine 0 /HPF (0-4)
[2021-04-22 12:39] LABS: COVID-19 Test Negative (Negative); IDNOW Serial# 9DD0AD1C
[2021-04-22 12:41] LABS: Anion Gap 10 (12-20); Blood Urea Nitrogen 9 mg/dL (9-16); Calcium 9.9 mg/dL (8.4-10.2); Carbon Dioxide 31 mmol/L (22-29); Chloride 105 mmol/L (96-108); Creatinine Clr Calc Pharmacy 107.9; Estimated Glomerular Filt Rate > 60; Glucose Random 88 mg/dL (60-115); Potassium 4.5 mmol/L (3.3-5.1); Sodium 141 mmol/L (135-145)
[2021-04-22 12:46] LABS: Troponin-I High Sensitivity < 3.5 ng/L (<3.5-17.0)
--- NOTE | 2021-04-22 12:47 | ED.GENADULT ---
HPI - General Adult General Chief complaint: General Medical Stated complaint: Chest Pain Back Pain Time Seen by Provider: 04/22/21 12:47 Source: patient Mode of arrival: ambulatory Limitations: no limitations History of Present Illness HPI narrative: This is a 50-year-old female past medical history significant for hypothyroidism rectal spasm, constipation, GERD presenting to the emergency department with concerns of back pain, chest pain, cough, fatigue and malaise x2 days progressively worsening. 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 Patient describes her back pain as an uncomfortable intermittent stabbing sensation, and upper back, worse with movement better at rest. She describes her chest pain as soreness and pressure. She tells me it is localized to the substernal area, without radiation. She tells me she has felt fatigue over the past few days, and it seems to be progressively worsening. She has been vaccinated against COVID-19. She denies fevers, chills, shortness of breath, headache, dizziness, vision changes, weakness. Onset (ago): day(s) (2) Location: chest Radiation: non-radiation Severity: moderate Quality: other ( soreness & pressure ) Pain Consistency: constant Relieving factors: none Exacerbating factors: none Associated symptoms: other (fatigue ) Treatments prior to arrival: none Related Data Home Medications Medication Instructions Recorded Confirmed biotin 1 mg capsule 1 mg PO DAILY 06/24/20 03/13/21 Previous Rx's Medication Instructions Recorded buspirone 5 mg tablet 5 mg PO BID PRN #180 tab 06/05/20 levothyroxine 150 mcg tablet 150 mcg PO QAM #90 tab 06/28/20 CPAP machine #1 ea 08/08/20 CPAP mask #1 ea 08/08/20 CPAP tubing #1 ea 08/08/20 sennosides 8.6 mg capsule (senna) 17.2 mg PO BEDTIME PRN 30 Days #60 09/03/20 cap famotidine 40 mg tablet (Pepcid) 40 mg PO BEDTIME 30 Days #30 tab 12/17/20 imipramine HCl 10 mg tablet 10 mg PO BEDTIME 30 Days #30 tab 12/17/20 azithromycin 250 mg tablet See Rx Instructions .ROUTE 04/22/21 .COMPLEX #6 tab benzonatate 100 mg capsule 100 mg PO BID PRN #20 cap 04/22/21 Allergies Allergy/AdvReac Type Severity Reaction Status Date / Time escitalopram [From Lexapro] Allergy Unknown Palpitation Verified 03/13/21 11:33 s Review of Systems Review of Systems: Constitutional : No Weight loss, No Fever, No Chills, + Fatigue, + Malaise ENT/Mouth : No sore throat, No Rhinorrhea Eyes: No Eye Pain, No Swelling, No Redness Cardiovascular : + Chest Pain, No SOB, No Dyspnea on Exertion, No Orthopnea, No Edema, No Palpitations Respiratory : + Cough, No Sputum, No Wheezing Gastrointestinal : No Nausea, No Vomiting, No Diarrhea, No Constipation, No abdominal Pain, No Hematochezia, No Melena Genitourinary : No Dysuria, No Urinary Frequency, No Hematuria, Musculoskeletal : No joint pain, No Myalgias, No Joint Swelling, + back pain Skin : No Skin Lesions, No rash Neuro : No Weakness, No Numbness, No Dizziness, No Headache All other systems reviewed and are negative Yes all other systems are reviewed and are negative [facility] Past Medical History Attestation statement: The following information was validated with the patient. Source: old records reviewed and nursing notes reviewed Medical History Anxiety Arthritis Depression GERD (gastroesophageal reflux disease) Hip pain History of COVID-19 History of ectopic Hypothyroid GRAEME (obstructive sleep apnea) Pneumonia RLS (restless legs syndrome) Surgical History History of bilateral breast reduction surgery History of bilateral salpingectomy History of endometrial ablation History of esophagogastroduodenoscopy (EGD) History of reversal of tubal ligation History of right oophorectomy History of tubal ligation Hx of colonoscopy Family History Family History Father Colon cancer Mother CVD (cardiovascular disease) Rheumatoid arthritis Thyroid condition Maternal Grandfather No problems noted. Maternal Grandmother HTN (hypertension) Diabetes mellitus CVD (cardiovascular disease) Alzheimers disease Thyroid condition Paternal Grandmother No problems noted. Paternal Grandfather No problems noted. Maternal Aunt Ovarian cancer Breast cancer Thyroid condition Maternal Uncle Diabetes mellitus Son No problems noted. Son No problems noted. Son No problems noted. Sister No problems noted. Sister No problems noted. Brother No problems noted. Brother No problems noted. Brother No problems noted. Brother No problems noted. 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 a primary district manager primary care sales to a significant other at home: No Do you presently have visiting nurse or other home services: No Alcohol intake: never Patient Tobacco Use Status: Never used Tobacco e-Cigarette/Vaping Use: Never Used Use of substances other than those prescribed or required for medical reasons: No Advance Directives: No Advance Directives Information Provided: Yes Patient : No Current occupational status: employed Sexual orientation: Straight/Heterosexual Gender identity: Female Physical Exam Vital Signs: Vital Signs: Last Vital Signs Temp 98.2 F 04/22/21 14:19 Pulse 83 04/22/21 14:19 Resp 15 04/22/21 14:19 BP 114/70 04/22/21 14:58 Pulse Ox 99 04/22/21 14:19 BMI result Body Mass Index 31.1 VSS Appearance: Alert.? Oriented X3.? No acute distress.? Head: Normocephalic, atraumatic, no step-offs or deformities Eyes: Pupils equal, round and reactive to light.? ENT: Pharynx normal.? Neck: Normal inspection.? Neck supple.? CVS: Normal heart rate and rhythm.? Pulses normal.? Respiratory: No respiratory distress.? Breath sounds normal.? Abdomen: Soft and nontender.? Skin: Skin warm and dry.? Normal skin color.? Normal skin turgor.? Extremities: No lower extremity edema.? No calf ttp. 5/5 strength to bilateral upper and lower extremities Back: No midline tenderness, no C-spine tenderness, full range of motion, no CVA tenderness bilaterally Neuro: Oriented X 3.? No motor deficit.? No sensory deficit. Course Reevaluation(s) Reevaluation #1: CBC within normal limits. No acute electrolyte abnormalities. Troponin negative. Urine is clean. COVID negative. Time: 13:00 Reevaluation #2: D-dimer negative. Unlikely that this is a PE. PERC score 0 Patient's story is not consistent with aortic dissection, patient's vital signs are stable, she reports that the back pain is worse with movement better at rest. She also does not describe the chest pain as a tearing pain she does describes discomfort and a soreness. Blood pressures around the same bilaterally. Unlikely dissection. Likley bronchitis. URI. At this time I feel comfortable with discharge home. Time: 14:37 Medical Decision Making MDM Narrative Medical decision making narrative: [id number] YO F pmhx GERD, constipation, GRAEME presents to ED w/ complaints of back pain, dry cough, chest soreness /pressure, fatigue, malaise X2 days. 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 Vaccinated against COVID. Denies SOB. Physical examination benign. Plan is to obtain basic labs, D-dimer, troponin, chest x-ray, COVID. Medical Records Medical records reviewed: Yes I reviewed the patient's medical records. Lab Data Lab results reviewed: Yes I reviewed the patient's lab results. Result diagrams: 04/22/21 12:06 04/22/21 12:06 Labs: Lab Results 04/22/21 04/22/21 04/22/21 Range/Units 12:06 12:06 12:06 WBC 6.6 (4.8-10.8) X10*3/uL RBC 4.71 (4.20-5.50) X10*6/uL Hgb 13.8 (12.0-16.0) g/dl Hct 40.6 (37.0-47.0) % MCV 86.2 (80.0-98.0) fL MCH 29.3 (27.0-33.0) pg MCHC 34.0 (31.0-35.0) g/dl RDW 12.0 (11.0-16.0) % Plt Count 251 (160-400) X10*3/uL MPV 9.6 (9.4-12.3) fL Immature Gran % (Auto) 0.3 (0.0-0.4) % Neut % (Auto) 56.0 (45-73) % Lymph % (Auto) 31.9 (20-40) % [place] % (Auto) 8.7 (2-11) % Eos % (Auto) 2.9 (0-4) % Baso % (Auto) 0.2 (0-2) % Lymph # (Auto) 2.1 (1.2-4.9) X10*3/uL [place] # (Auto) 0.6 (0.1-1.2) X10*3/uL Eos # (Auto) 0.2 (0.0-0.4) X10*3/uL Baso # (Auto) 0.0 (0.0-0.2) X10*3/uL Abs Immat Gran (auto) 0.02 (0.00-0.03) X10*3/uL Absolute Neuts (auto) 3.7 (2.0-8.3) x10*3/uL Absolute Nucleated RBC 0.000 (0.0-0.012) X10*3/uL Nucleated RBC % (auto) 0.0 (0.0-0.2) /100WBC D-Dimer High Sensitivty NG/ML Sodium 141 (135-145) mmol/L Potassium 4.5 (3.3-5.1) mmol/L Chloride 105 (96-108) mmol/L Carbon Dioxide 31 H (22-29) mmol/L Anion Gap 10 L (12-20) BUN 9 (9-16) mg/dL Creatinine 0.76 (0.5-1.4) mg/dL Estim Creat Clear Calc 107.9 Estimated GFR > 60 Random Glucose 88 (60-115) mg/dL Calcium 9.9 D (8.4-10.2) mg/dL Troponin I High Sens < 3.5 (<3.5-17.0) ng/L Urine Color Urine Appearance Urine pH (5.0-8.0) Ur Specific [place] (1.005-1.025) Urine Protein (NEG-TRACE) MG/DL Urine Glucose (UA) (NEG) MG/DL Urine Ketones (NEG) MG/DL Urine Blood (NEG) Urine Nitrite (NEG) Ur Leukocyte Esterase (NEG) Urine RBC (0) /HPF Urine WBC (0-4) /HPF Ur Squamous Epith Cells /LPF Urine Bacteria /LPF COVID-19 (EDEL) (Negative) COVID-19 Clin Com 04/22/21 04/22/21 04/22/21 Range/Units 12:07 12:11 14:05 WBC (4.8-10.8) X10*3/uL RBC (4.20-5.50) X10*6/uL Hgb (12.0-16.0) g/dl Hct (37.0-47.0) % MCV (80.0-98.0) fL MCH (27.0-33.0) pg MCHC (31.0-35.0) g/dl RDW (11.0-16.0) % Plt Count (160-400) X10*3/uL MPV (9.4-12.3) fL Immature Gran % (Auto) (0.0-0.4) % Neut % (Auto) (45-73) % Lymph % (Auto) (20-40) % [place] % (Auto) (2-11) % Eos % (Auto) (0-4) % Baso % (Auto) (0-2) % Lymph # (Auto) (1.2-4.9) X10*3/uL [place] # (Auto) (0.1-1.2) X10*3/uL Eos # (Auto) (0.0-0.4) X10*3/uL Baso # (Auto) (0.0-0.2) X10*3/uL Abs Immat Gran (auto) (0.00-0.03) X10*3/uL Absolute Neuts (auto) (2.0-8.3) x10*3/uL Absolute Nucleated RBC (0.0-0.012) X10*3/uL Nucleated RBC % (auto) (0.0-0.2) /100WBC D-Dimer High Sensitivty < 150 NG/ML Sodium (135-145) mmol/L Potassium (3.3-5.1) mmol/L Chloride (96-108) mmol/L Carbon Dioxide (22-29) mmol/L Anion Gap (12-20) BUN (9-16) mg/dL Creatinine (0.5-1.4) mg/dL Estim Creat Clear Calc Estimated GFR Random Glucose (60-115) mg/dL Calcium (8.4-10.2) mg/dL Troponin I High Sens (<3.5-17.0) ng/L Urine Color YELLOW Urine Appearance HAZY Urine pH 7.0 (5.0-8.0) Ur Specific [place] <= 1.005 (1.005-1.025) Urine Protein NEG (NEG-TRACE) MG/DL Urine Glucose (UA) NEG (NEG) MG/DL Urine Ketones NEG (NEG) MG/DL Urine Blood 1+ H (NEG) Urine Nitrite NEG (NEG) Ur Leukocyte Esterase NEG (NEG) Urine RBC 1-4 (0) /HPF Urine WBC 0 (0-4) /HPF Ur Squamous Epith Cells 1+ /LPF Urine Bacteria NONE /LPF COVID-19 (EDEL) Negative (Negative) COVID-19 Clin Com See Note Imaging Data Chest x-ray: Attestation: I personally reviewed and interpreted this imaging study as follows: Radiologist's impression: FINDINGS: No significant abnormality is noted involving the heart, lungs, mediastinum, bony thorax or soft tissues. XR/XR chest 1V IMPRESSION: Unremarkable examination. ECG Data Attestation: I personally reviewed and interpreted this ECG as follows: Prior ECG tracings: not available for review Interpretation: Ventricular rate of 87, [place] normal, QRS normal, QT/QTC normal. EKG shows normal sinus rhythm. No ST elevations or inversions. No acute ischemia. No previous EKGs to compare with Critical Care Time Critical Care Time Critical Care Time: No Discharge Plan Discharge Clinical Impression: Bronchitis, Chest pain not due to acute coronary syndrome, Back pain Patient Disposition: Home, Self-Care Instructions: Acute Bronchitis (ED), Chest Wall Pain (ED) Additional Instructions: Take your medications as prescribed. If you were prescribed antibiotics today, it is important that you take your medication to their entirety, do not skip any doses, do not finish them early. Follow-up with your primary care provider this week. Return to the emergency department with new or worsening symptoms. In case of emergency call 911 You tested negative for COVID-19 today. I recommend to retest in 3-4 days. Prescriptions: New azithromycin 250 mg tablet See Rx Instructions .ROUTE .COMPLEX Qty: 6 RF: 0 benzonatate 100 mg capsule 100 mg PO BID PRN (Reason: cough) Qty: 20 RF: 0 No Action buspirone 5 mg tablet 5 mg PO BID PRN (Reason: anxiety) Qty: 180 RF: 2 levothyroxine 150 mcg tablet 150 mcg PO QAM Qty: 90 RF: 3 (DME) CPAP machine See Rx Instructions .Route .MEDSUPPLY Qty: 1 RF: 0 (DME) CPAP tubing See Rx Instructions .Route .MEDSUPPLY Qty: 1 RF: 0 (DME) CPAP mask See Rx Instructions .Route .MEDSUPPLY Qty: 1 RF: 0 biotin 1 mg capsule 1 mg PO DAILY RF: 0 senna 8.6 mg capsule 17.2 mg PO BEDTIME PRN (Reason: constipation) 30 Days Qty: 60 RF: 6 imipramine HCl 10 mg tablet 10 mg PO BEDTIME 30 Days Qty: 30 RF: 6 famotidine [Pepcid] 40 mg tablet 40 mg PO BEDTIME 30 Days Qty: 30 RF: 6 Referrals: Beba Crook MD [Primary Care Provider] - 2 days Stand Alone Forms: Work/School Release Interventions: ED Discharge Assessment Last Done: 04/22/21 15:54 Discharge Date/Time: 04/22/21 15:59
[2021-04-22 14:19] VITALS: BP 133/72; PULSE 83; RESP 15; TEMP 36.8; O2SAT 99
[2021-04-22 14:33] LABS: D Dimer High Sensitivity < 150 NG/ML
[2021-04-22 14:56] VITALS: BP 114/65
[2021-04-22 14:58] VITALS: BP 114/70
== END 2021-04-22 15:59 | disposition home or self-care (01) ==
PROVIDERS: Physician Assistant; Emergency Provider Emergency Medicine; PCP Internal Medicine
DX: M54.9 Dorsalgia, unspecified (principal); J40 Bronchitis, not specified as acute or chronic; R07.89 Other chest pain; Z20.822 Contact with and (suspected) exposure to COVID-19
CPT/HCPCS: 36415; 71045; 80048; 81001; 84484; 85025; 85379; 87635; 93005; 99284; 99285

== ENCOUNTER 2021-07-09 06:56 | Outpatient (REF) | payer OTHER, SELFPAY ==
[2021-07-09 07:25] LABS: Hematocrit 41.5 % (37.0-47.0); Mean Corpuscular HGB Conc 33.7 g/dl (31.0-35.0); Mean Corpuscular Hemoglobin 28.8 pg (27.0-33.0); Mean Corpuscular Volume 85.4 fL (80.0-98.0); Mean Platelet Volume 9.6 fL (9.4-12.3); Platelet Count 294 X10*3/uL (160-400); Red Blood Count 4.86 X10*6/uL (4.20-5.50); Red Cell Distribution Width 11.9 % (11.0-16.0); White Blood Count 6.9 X10*3/uL (4.8-10.8)
[2021-07-09 07:50] LABS: Alanine Aminotransferase 13 U/L (0-31); Albumin Level 4.1 g/dL (3.5-5.0); Alkaline Phosphatase 74 U/L (39-117); Anion Gap 13 (12-20); Aspartate Amino Transferase 15 U/L (5-31); Bilirubin Total 0.3 mg/dL (0.0-1.0); Blood Urea Nitrogen 11 mg/dL (9-16); Calcium 9.5 mg/dL (8.4-10.2); Carbon Dioxide 25 mmol/L (22-29); Chloride 105 mmol/L (96-108); Cholesterol 222 mg/dL; Estimated Glomerular Filt Rate > 60; Glucose Fasting 98 mg/dL (60-99); HDL Cholesterol 39 mg/dL; LDL Cholesterol Calculated 137 mg/dl; Potassium 4.1 mmol/L (3.3-5.1); Sodium 139 mmol/L (135-145); Total Protein 7.1 g/dL (6.5-8.0); Triglycerides 231 mg/dL
[2021-07-09 08:13] LABS: TSH reflex Free T4 30.01 uIU/mL (0.32-4.0)
[2021-07-09 08:45] LABS: Free T4 (Free Thyroxine) 0.88 ng/dL (0.71-1.85)
== END 2021-07-09 06:57 | disposition home or self-care (01) ==
LOC: HO.LAB 06:56
PROVIDERS: PCP Internal Medicine; Visit Provider Internal Medicine
DX: Z00.00 Encounter for general adult medical examination without abnormal findings (principal); E03.9 Hypothyroidism, unspecified; E78.1 Pure hyperglyceridemia
CPT/HCPCS: 36415; 80053; 80061; 84439; 84443; 85027

== ENCOUNTER 2021-09-02 14:45 | Outpatient (REF) | payer OTHER, SELFPAY ==
[2021-09-02 16:49] LABS: Free T4 (Free Thyroxine) 1.57 ng/dL (0.71-1.85)
== END 2021-09-02 14:46 | disposition home or self-care (01) ==
LOC: HO.LAB 14:45
PROVIDERS: PCP Internal Medicine; Visit Provider Internal Medicine
DX: E03.9 Hypothyroidism, unspecified (principal)
CPT/HCPCS: 36415; 84439; 84443

== ENCOUNTER 2021-10-17 10:39 | Outpatient (REF) | payer OTHER, SELFPAY ==
[2021-10-17 12:00] LABS: TSH reflex Free T4 4.75 uIU/mL (0.32-4.0)
[2021-10-17 13:51] LABS: Free T4 (Free Thyroxine) 1.09 ng/dL (0.71-1.85)
== END 2021-10-17 10:40 | disposition home or self-care (01) ==
LOC: HO.LAB 10:39
PROVIDERS: PCP Internal Medicine; Visit Provider Internal Medicine
DX: E03.9 Hypothyroidism, unspecified (principal)
CPT/HCPCS: 36415; 84439; 84443

== ENCOUNTER 2021-11-07 13:51 | Outpatient (REF) | payer OTHER, SELFPAY ==
[2021-11-07 17:01] LABS: TSH reflex Free T4 1.71 uIU/mL (0.32-4.0)
== END 2021-11-07 13:52 | disposition home or self-care (01) ==
LOC: HO.HMGCLDS 13:51
PROVIDERS: Visit Provider Internal Medicine
DX: Z00.00 Encounter for general adult medical examination without abnormal findings (principal); E03.9 Hypothyroidism, unspecified
CPT/HCPCS: 36415; 84443

== ENCOUNTER 2022-04-07 09:17 | Outpatient (REF) | payer OTHER, SELFPAY ==
--- NOTE | ~2022-04-07 | US_ITS ---
EXAMINATION: US PELVIS CLINICAL INFORMATION: Hypertrophy of uterus. COMPARISON: None. TECHNIQUE: Ultrasound of the pelvis is performed using both transabdominal and transvaginal transducers along with Doppler. Transvaginal imaging is performed due to inadequate visualization transabdominally. FINDINGS: The uterus measures 11.4 x 8 x 7.9 cm in dimension. There are multiple hypoechoic uterine lesions suggestive of fibroids. At least 9 focal lesions are seen. The largest measure 3.8 x 2.9 x 2.8 cm in the left fundus or upper uterine body, 2.8 x 2.4 x 2.7 cm in the left uterine body, 3.5 x 3.7 x 3.4 cm in the right fundus or upper uterine body and 2.1 x 1.9 x 1.7 cm the uterine body near the endometrium. Endometrial thickness measures 0.8 cm. There are nabothian cysts in the cervix. The left ovary has been removed. The right ovary measures 4.2 x 3 x 2.9 cm. There are 2 small simple right ovarian cysts, largest measuring 2.3 x 1.6 x 1.9 cm. There is no fluid in the pelvis. US/US pelvic and transvaginal IMPRESSION: Enlarged fibroid uterus. Normal-appearing right ovary.
== END 2022-04-07 09:18 | disposition home or self-care (01) ==
LOC: HO.US 09:17
PROVIDERS: Visit Provider Obstetrics & Gynecology
DX: N85.2 Hypertrophy of uterus (principal)
CPT/HCPCS: 76830; 76856

== ENCOUNTER 2022-04-13 13:58 | Outpatient (REF) | payer OTHER, SELFPAY ==
--- NOTE | ~2022-04-13 | MM_ITS ---
EXAMINATION: MM SCREENING DIGITAL BREAST TOMOSYNTHESIS, BILATERAL CLINICAL INFORMATION: Screening. Asymptomatic. Remote prior reduction mammoplasty, 2012. The lifetime risk of breast cancer based on the Tyrer-Cuzick Model is 9%. COMPARISON: Mammography: 11/21/2020; outside mammography 01/15/2017 ([facility], [place]). TECHNIQUE: Digital breast tomosynthesis is performed in both the craniocaudal and mediolateral oblique views along with computer-aided detection (CAD). Synthesized 2D images are generated from the tomosynthesis. FINDINGS: There are scattered areas of fibroglandular density (ACR BI-RADS breast composition Category b). Parenchymal pattern is similar to prior exams. Minor scarring consistent with the reduction mammoplasty is again demonstrated. There is no interval mass or architectural abnormality or developing density. No abnormal calcifications. The axilla are unremarkable. The skin contours are smooth. No significant changes. MM/MM tomosynthesis screening BI IMPRESSION: No mammographic evidence of malignancy. ASSESSMENT: BI-RADS 2: Benign RECOMMENDATION: Routine annual mammography screening. This patient's information was entered into a reminder system with a target due date for their next mammogram.
== END 2022-04-13 13:59 | disposition home or self-care (01) ==
LOC: HO.MAMMO 13:58
PROVIDERS: PCP Internal Medicine; Visit Provider Obstetrics & Gynecology
DX: Z12.31 Encounter for screening mammogram for malignant neoplasm of breast (principal)
CPT/HCPCS: 77063; 77067

== ENCOUNTER → 2022-04-30 12:39 | Outpatient (BNVA) | payer OTHER, SELFPAY | PROVIDERS: PCP Internal Medicine; Visit Provider Obstetrics & Gynecology | DX: Z13.89 Encounter for screening for other disorder (principal) ==

== ENCOUNTER 2022-05-01 13:22 | Outpatient (REF) | payer OTHER, SELFPAY ==
[2022-05-01 14:31] LABS: Hemoglobin 13.3 g/dl (12.0-16.0); Mean Corpuscular HGB Conc 34.1 g/dl (31.0-35.0); Mean Corpuscular Hemoglobin 28.5 pg (27.0-33.0); Mean Corpuscular Volume 83.5 fL (80.0-98.0); Mean Platelet Volume 9.7 fL (9.4-12.3); Platelet Count 300 X10*3/uL (160-400); Red Blood Count 4.67 X10*6/uL (4.20-5.50); Red Cell Distribution Width 12.2 % (11.0-16.0)
[2022-05-01 15:15] LABS: HCG Quantitative < 2 mIU/mL; TSH reflex Free T4 2.54 uIU/mL (0.32-4.0)
== END 2022-05-01 13:23 | disposition home or self-care (01) ==
LOC: HO.LAB 13:22
PROVIDERS: PCP Internal Medicine; Visit Provider Obstetrics & Gynecology
DX: N93.9 Abnormal uterine and vaginal bleeding, unspecified (principal)
CPT/HCPCS: 36415; 84443; 84702; 85027

== ENCOUNTER 2022-05-21 11:04 | Outpatient (REF) | payer OTHER, SELFPAY | END 2022-05-21 11:05 | disposition home or self-care (01) | LOC: HO.LNP 11:04 | PROVIDERS: PCP Internal Medicine; Visit Provider Obstetrics & Gynecology | DX: N93.9 Abnormal uterine and vaginal bleeding, unspecified (principal) | CPT/HCPCS: 58100; 88305 ==

== ENCOUNTER 2022-06-05 10:50 | Outpatient (REF) | payer OTHER, SELFPAY ==
--- NOTE | ~2022-06-05 | US_ITS ---
EXAMINATION: US PELVIS COMPLETE CLINICAL INFORMATION: Hypertrophy of the uterus COMPARISON: Pelvic ultrasound 04/07/2022 TECHNIQUE: Transabdominal and transvaginal imaging was performed. FINDINGS: The uterus is enlarged measuring 14.0 x 6.6 x 9.8 cm. A regular homogeneous endometrium is identified measuring 0.5 cm. Nabothian cysts in the cervix. There are multiple uterine myomas including: * A 3.1 cm right subserosal fundal myoma, previously 3.7 cm. * A 4.3 cm subserosal left fundal myoma, previously 3.8 cm. * A 2.9 cm intramural left mid body myoma, previously 2.8 cm. * A 2.0 cm intramural posterior body myoma, previously 2.1 cm. The right ovary measures 4.2 x 3.0 x 2.9 cm for a volume of 15 mL. Right ovary is unremarkable in appearance. Left ovary was not identified as per report absent. There is trace simple pelvic free fluid. US/US pelvic and transvaginal IMPRESSION: Enlarged myomatous uterus, with subserosal and intramural myomas, with measurements detailed above. Unremarkable appearance of the right ovary. Left ovary was not identified.
== END 2022-06-05 10:51 | disposition home or self-care (01) ==
LOC: HO.US 10:50
PROVIDERS: Visit Provider Obstetrics & Gynecology
DX: N85.2 Hypertrophy of uterus (principal)
CPT/HCPCS: 76830; 76856

== ENCOUNTER → 2022-06-11 14:54 | Outpatient (BNVA) | payer OTHER, SELFPAY | PROVIDERS: PCP Internal Medicine; Visit Provider Obstetrics & Gynecology | DX: Z13.89 Encounter for screening for other disorder (principal) ==

== ENCOUNTER → 2022-07-20 08:49 | Outpatient (BNVA) | payer OTHER, SELFPAY | PROVIDERS: PCP Internal Medicine; Visit Provider Obstetrics & Gynecology | DX: Z13.89 Encounter for screening for other disorder (principal) ==

== ENCOUNTER 2022-11-15 11:09 | Emergency (ER) | payer OTHER, SELFPAY ==
--- NOTE | ~2022-11-15 | CT_ITS ---
EXAMINATION: HEAD CT WITHOUT CONTRAST MAXILLOFACIAL CT WITHOUT CONTRAST CLINICAL INFORMATION: Head strike, pain fall. Nasal deformity. Pain. COMPARISON: None. TECHNIQUE: Contiguous axial imaging of the head was performed without the administration of IV contrast. Axial multidetector volumetric images were also performed through the facial bones without contrast from the frontal sinuses through the mandible. Multiplanar reconstructed images in coronal and sagittal orientations were submitted. DOSE: 1198 mGy-cm FINDINGS: HEAD: There is no evidence of acute intracranial hemorrhage or territorial infarction. No abnormal mass-effect or midline shift. No extra-axial fluid collections. Benson to white matter differentiation is well preserved. The ventricles are normal in size and configuration. There is no abnormal attenuation within the brain parenchyma. No acute calvarial fracture. The visualized sinuses and mastoid air cells are clear. MAXILLOFACIAL: The mandible, maxilla, pterygoid plates, zygomatic arches, paranasal sinus hernandez, and bony orbits are intact. Slightly dysmorphic appearance of the distal aspect of the nasal bones, and with question of subtle lucencies in the right nasal bone, raises the possibility of nasal bone fracture. Nasal soft tissue swelling. Clinically correlate. Mucosal thickening in bilateral inferior maxillary sinus. No fluid levels seen in the sinuses. The remainder of the sinuses appear unremarkable. The paranasal sinuses and mastoid air cells remain well-aerated. No significant soft tissue findings. CT/CT facial bones wo IV con IMPRESSION: 1. No CT evidence of acute intracranial hemorrhage or edematous acute infarction. 2. Nasal bone findings from possible nasal bone fracture. 3. Additional findings and details as above.
--- NOTE | ~2022-11-15 | CT_ITS ---
EXAMINATION: HEAD CT WITHOUT CONTRAST MAXILLOFACIAL CT WITHOUT CONTRAST CLINICAL INFORMATION: Head strike, pain fall. Nasal deformity. Pain. COMPARISON: None. TECHNIQUE: Contiguous axial imaging of the head was performed without the administration of IV contrast. Axial multidetector volumetric images were also performed through the facial bones without contrast from the frontal sinuses through the mandible. Multiplanar reconstructed images in coronal and sagittal orientations were submitted. DOSE: 1198 mGy-cm FINDINGS: HEAD: There is no evidence of acute intracranial hemorrhage or territorial infarction. No abnormal mass-effect or midline shift. No extra-axial fluid collections. Benson to white matter differentiation is well preserved. The ventricles are normal in size and configuration. There is no abnormal attenuation within the brain parenchyma. No acute calvarial fracture. The visualized sinuses and mastoid air cells are clear. MAXILLOFACIAL: The mandible, maxilla, pterygoid plates, zygomatic arches, paranasal sinus hernandez, and bony orbits are intact. Slightly dysmorphic appearance of the distal aspect of the nasal bones, and with question of subtle lucencies in the right nasal bone, raises the possibility of nasal bone fracture. Nasal soft tissue swelling. Clinically correlate. Mucosal thickening in bilateral inferior maxillary sinus. No fluid levels seen in the sinuses. The remainder of the sinuses appear unremarkable. The paranasal sinuses and mastoid air cells remain well-aerated. No significant soft tissue findings. CT/CT head/brain wo IV con IMPRESSION: 1. No CT evidence of acute intracranial hemorrhage or edematous acute infarction. 2. Nasal bone findings from possible nasal bone fracture. 3. Additional findings and details as above.
[2022-11-15 11:18] VITALS: BP 125/78; PULSE 87; RESP 18; TEMP 36.2; O2SAT 98; BMI 30.4
--- NOTE | 2022-11-15 11:18 | ED.FALL ---
HPI - Fall General Chief Complaint: Fall Stated Complaint: Fall Time Seen by Provider: 11/15/22 12:30 Source: patient Mode of arrival: ambulatory Limitations: no limitations History of Present Illness HPI Narrative: 52-year-old female history of hypertension, CVD, diabetes, Alzheimer's disease, thyroid condition presenting to the emergency department with complaints of pain to know/face after mechanical trip and fall, patient was rearranging her bedroom, tripped on a rug, falling forward, hitting her face. Patient not on blood thinners, denies head strike, loss of consciousness. She does not have a small laceration to her nose. Complaining of severe sent added 10 pain to nose. Reports headache and general pain and swelling to her whole face. Reports nosebleed from R nare after falling which has resolved. Denies vision changes, dizziness, weakness, ringing in ears, disequilibrium, chest pain, shortness of breath, nausea, vomiting, abdominal pain. Not on thinners. Related Data Home Medications Medication Instructions Recorded Confirmed biotin 1 mg capsule 1 mg PO DAILY 06/24/20 11/07/21 Previous Rx's Medication Instructions Recorded CPAP machine #1 ea 08/08/20 CPAP mask #1 ea 08/08/20 CPAP tubing #1 ea 08/08/20 sennosides 8.6 mg capsule (senna) 17.2 mg PO BEDTIME PRN 09/03/20 constipation 30 days #60 caps famotidine 40 mg tablet (Pepcid) 40 mg PO BEDTIME 30 days #30 tabs 12/17/20 dicyclomine 10 mg capsule 20 mg PO TID #60 caps 12/10/21 simethicone 180 mg capsule 180 mg PO TID 30 days #90 caps 12/10/21 buspirone 5 mg tablet 5 mg PO BID PRN anxiety #180 tabs 02/20/22 levothyroxine 150 mcg tablet 150 mcg PO QAM #90 tabs 10/18/22 doxycycline hyclate 100 mg capsule 100 mg PO BID 10 days #20 caps 11/15/22 morphine 15 mg immediate release 15 mg PO Q6H PRN pain 5 days #10 11/15/22 tablet tabs Allergies Allergy/AdvReac Type Severity Reaction Status Date / Time escitalopram [From Lexapro] Allergy Unknown Palpitation Verified 07/20/22 09:00 s Review of Systems Review of Systems: Constitutional : No Weight loss, No Fever, No Chills, No Fatigue, No Malaise ENT/Mouth : No sore throat, No Rhinorrhea Eyes: No Eye Pain, + Swelling, No Redness Cardiovascular : No Chest Pain, No SOB, No Dyspnea on Exertion, No Orthopnea, No Edema, No Palpitations Respiratory : No Cough, No Sputum, No Wheezing Gastrointestinal : No Nausea, No Vomiting, No Diarrhea, No Constipation, No abdominal Pain, No Hematochezia, No Melena Genitourinary : No Dysuria, No Urinary Frequency, No Hematuria, Musculoskeletal : No joint pain, No Myalgias, No Joint Swelling, + nose pain +jaw pain +forehead pain Skin : No Skin Lesions, No rash Neuro : No Weakness, No Numbness, No Dizziness, + Headache Psych : No Anxiety/Panic, No Depression All other systems reviewed and are negative Yes all other systems are reviewed and are negative PMFSH Past Medical History Attestation statement: The following information was validated with the patient. Source: old records reviewed and nursing notes reviewed Medical History Anxiety Arthritis Depression GERD (gastroesophageal reflux disease) Hip pain History of COVID-19 History of ectopic Hypothyroid GRAEME (obstructive sleep apnea) Pneumonia RLS (restless legs syndrome) Surgical History History of bilateral breast reduction surgery History of bilateral salpingectomy History of endometrial ablation History of esophagogastroduodenoscopy (EGD) History of reversal of tubal ligation History of right oophorectomy History of tubal ligation Hx of colonoscopy Family History Family History Father Colon cancer Mother CVD (cardiovascular disease) Rheumatoid arthritis Thyroid condition Maternal Grandfather No problems noted. Maternal Grandmother HTN (hypertension) Diabetes mellitus CVD (cardiovascular disease) Alzheimers disease Thyroid condition Paternal Grandmother No problems noted. Paternal Grandfather No problems noted. Maternal Aunt Ovarian cancer Breast cancer Thyroid condition Maternal Uncle Diabetes mellitus Son No problems noted. Son No problems noted. Son No problems noted. Sister No problems noted. Sister No problems noted. Brother No problems noted. Brother No problems noted. Brother No problems noted. Brother No problems noted. 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 a primary acute care occupational therapist to a significant other at home: No Do you presently have visiting nurse or other home services: No Alcohol intake: never Patient Tobacco Use Status: Never used Tobacco e-Cigarette/Vaping Use: Never Used Advance Directives: No Advance Directives Information Provided: Yes Current occupational status: employed Sexual orientation: Straight/Heterosexual Gender identity: Female Cognitive needs: No Hearing needs: No Vision needs: Yes (reading glasses) Physical Exam Vital Signs: Vital Signs: Last Vital Signs Temp 98.2 F 11/15/22 12:22 Pulse 74 11/15/22 14:07 Resp 16 11/15/22 12:22 BP 117/87 11/15/22 14:07 Pulse Ox 100 11/15/22 12:22 O2 Del Method Room Air 11/15/22 12:22 BMI result Body Mass Index 30.4 vss Appearance: Alert.? Oriented X3.? No acute distress.? Head: Normocephalic, no step-offs or deformities + tenderness to palpation of nose with an abrasion overlying nose. +swelling to the nose bridge +ttp to cheeks, forehead, jaw Eyes: Pupils equal, round and reactive to light.? extraocular movements intact and pain-free. +sensitivity to light ENT: Pharynx normal.? Tympanic membranes normal bilaterally, no hemotympanum. No nasal septal hematoma Neck: Normal inspection.? Neck supple.? CVS: Normal heart rate and rhythm.? Pulses normal.? Respiratory: No respiratory distress.? Breath sounds normal.? Abdomen: Soft and nontender.? Skin: Skin warm and dry.? Normal skin color.? Normal skin turgor.? Extremities: No lower extremity edema.? No calf ttp. 5/5 strength to bilateral upper and lower extremities Back: No midline tenderness, no C-spine tenderness, full range of motion, no CVA tenderness bilaterally Neuro: Oriented X 3.? No motor deficit.? No sensory deficit. CN 2-12 intact . Normal [id number], [id number], steady tandem gait with normal coordination. NIHSS 0 Course Course Course Narrative: This is an RME: Additional HPI, ROS, PE not included below will be deferred to primary provider. Patient is a 52 year old female who presents to the emergency department for evaluation of nasal pain after mechanical trip and fall in her bedroom for an area rug last night. Denies any loss of consciousness, denies use of anticoagulants. Plan: CT facial bones Reevaluation(s) Reevaluation #1: CBC appears to be around patient's baseline she does have a leukopenia however has been present the past. No acute findings. Chemistry with no acute findings requiring intervention. Troponin negative, EKG nonischemic. EKG showing normal sinus rhythm unlikely ACS. CT scans of face and head pending as well as orthostatic vitals. Neuro exam remains nonfocal. Time: 14:04 Reevaluation #2: CT of head and brain with no acute intracranial hemorrhage or edematous acute infarction. Nasal bone findings for possible nasal bone fracture. Some incidental findings noted on CT. Advised patient to check patient portal. Educated patient on diagnosis and treatment plan, answered all question, patient verbalizes understanding. At this time patient will be discharged home, advised to return with new or worsening symptoms. Educated on worrisome signs and symptoms and when to return. At this time I feel comfortable discharge home. Discharge home with oral morphine, educated her on proper use of narcotics. Will also give doxycycline as she does have an abrasion on her nose to cover for possible infection. At time of discharge patient states her only complaint is some nose pain improved with morphine. Neuro exam remains nonfocal. Requesting work note. Time: 15:20 Medications Administered Discontinued Medications Generic Name Dose Route Start Last Admin Trade Name Freq PRN Reason Stop Dose Admin Morphine Sulfate 15 mg 11/15/22 14:08 11/15/22 14:55 Morphine Sulfate Immed Release 15 Mg Tablet PO 11/15/22 14:09 15 mg ONCE ONE Administration Medical Decision Making Medical Decision Making MDM Narrative: 52-year-old female presents status post mechanical trip and fall pain to nose after head strike. Physical exam significant for tenderness to palpation to nose, with abrasion overlying. Extraocular movements intact and pain-free. Neuro nonfocal. Patient denies preceding symptoms to fall, unlikely ACS, orthostatic hypotension, PE. This is likely mechanical fall with abrasion overlying nose, possible fracture dislocation of nose. No signs of nerve entrapment of optic nerve. No step-offs or deformities to face. Unlikely intracranial hemorrhage or stroke. Will rule out fractures or dislocations to facial bones. No signs of nasal septal hematoma or airway compromise. No signs of traumatic injury to cervical spine. No signs of traumatic injury to chest, abdomen or pelvis. Plan EKG, CT scan of head, face, orthostatic vital signs Differential Diagnosis Differential Diagnoses: The differential diagnosis associated with the presentation includes Patient denies preceding symptoms to fall, unlikely ACS, orthostatic hypotension, PE. This is likely mechanical fall with abrasion overlying nose, possible fracture dislocation of nose. No signs of nerve entrapment of optic nerve. No step-offs or deformities to face. Unlikely intracranial hemorrhage or stroke. Will rule out fractures or dislocations to facial bones. No signs of nasal septal hematoma or airway compromise. No signs of traumatic injury to cervical spine. No signs of traumatic injury to chest, abdomen or pelvis. Admission/Observation Consideration of admission/observation: Escalation of care including admission/observation considered unlikely Lab Data 11/15/22 13:04 11/15/22 13:04 Labs: Lab Results 11/15/22 11/15/22 11/15/22 Range/Units 13:04 13:04 13:04 WBC 4.7 L (4.8-10.8) X10*3/uL RBC 4.81 (4.20-5.50) X10*6/uL Hgb 13.7 (12.0-16.0) g/dl Hct 40.1 (37.0-47.0) % MCV 83.4 (80.0-98.0) fL MCH 28.5 (27.0-33.0) pg MCHC 34.2 (31.0-35.0) g/dl RDW 11.8 (11.0-16.0) % Plt Count 239 (160-400) X10*3/uL MPV 9.3 L (9.4-12.3) fL Immature Gran % (Auto) 0.2 (0.0-0.4) % Neut % (Auto) 40.8 L (45-73) % Lymph % (Auto) 45.3 H (20-40) % [place] % (Auto) 9.9 (2-11) % Eos % (Auto) 3.6 (0-4) % Baso % (Auto) 0.2 (0-2) % Lymph # (Auto) 2.1 (1.2-4.9) X10*3/uL [place] # (Auto) 0.5 (0.1-1.2) X10*3/uL Eos # (Auto) 0.2 (0.0-0.4) X10*3/uL Baso # (Auto) 0.0 (0.0-0.2) X10*3/uL Abs Immat Gran (auto) 0.01 (0.00-0.03) X10*3/uL Absolute Neuts (auto) 1.9 L (2.0-8.3) x10*3/uL Absolute Nucleated RBC 0.000 (0.0-0.012) X10*3/uL Nucleated RBC % (auto) 0.0 (0.0-0.2) /100WBC Sodium 142 (135-145) mmol/L Potassium 3.9 (3.3-5.1) mmol/L Chloride 109 H (96-108) mmol/L Carbon Dioxide 25 (22-29) mmol/L Anion Gap 12 (12-20) BUN 12 (9-16) mg/dL Creatinine 0.75 (0.5-1.4) mg/dL Estim Creat Clear Calc 105.7 Estimated GFR > 60 Random Glucose 79 (60-115) mg/dL Calcium 9.1 (8.4-10.2) mg/dL Troponin I High Sens < 2.7 (<3.5-17.0) ng/L Independent Interpretation I performed an independent interpretation of an: EKG (Ventricular rate of 76, NV normal, QRS normal, QT/QTC normal. No ST elevations or inversions concerning for acute ischemia.) and CT Scan Radiology Impression Discussion of test interpretation with radiology: I have reviewed the radiologist's reading. Critical Care Time Critical Care Time Critical Care Time: No Discharge Plan Discharge Clinical Impression: Fall, Closed fracture nasal bone Patient Disposition: Home, Self-Care Instructions: Nasal Fracture (ED), Facial Fracture (ED), Fall Prevention (ED) Additional Instructions: Take your medications as prescribed. If you were prescribed antibiotics today, it is important that you take your medication to their entirety, do not skip any doses, do not finish them early. Follow-up with your primary care provider this week. Please follow-up with ears Nose and Throat. Return to the emergency department with new or worsening symptoms. Such as fevers, chills, chest pain, shortness of breath, nausea, vomiting, dizziness, headache, vision changes, lethargy In case of emergency call 911 A narcotic has been sent to your pharmacy please take this as prescribed. Do not take more than the prescribed dose. Narcotic medications can cause addiction. Please do not mix them with alcohol. Do not take them while driving or operating machinery. Do not take them with any other narcotics. Do not share them with friends or family. They can cause constipation. Take them only for severe pain. Use caution with doxycycline as it can cause a rash in direct sunlight. Limit exposure to direct sunlight wear sun protection, clothing and sunscreen. CT/CT head/brain wo IV con IMPRESSION: 1. No CT evidence of acute intracranial hemorrhage or edematous acute infarction. 2. Nasal bone findings from possible nasal bone fracture. 3. Additional findings and details as above. Prescriptions: New doxycycline hyclate 100 mg capsule 100 mg PO BID 10 Days Qty: 20 0RF morphine 15 mg tablet 15 mg PO Q6H PRN (Reason: pain) 5 Days Qty: 10 0RF Rx Instructions: Partial Fill upon patient request. No Action (DME) CPAP machine See Rx Instructions .Route .MEDSUPPLY Qty: 1 0RF Rx Instructions: start off on auto pap mode; pressure setting 6-16cm of H2O (DME) CPAP tubing See Rx Instructions .Route .MEDSUPPLY Qty: 1 0RF Rx Instructions: As directed (DME) CPAP mask See Rx Instructions .Route .MEDSUPPLY Qty: 1 0RF Rx Instructions: As directed buspirone 5 mg tablet 5 mg PO BID PRN (Reason: anxiety) Qty: 180 2RF levothyroxine 150 mcg tablet 150 mcg PO QAM Qty: 90 0RF biotin 1 mg capsule 1 mg PO DAILY senna 8.6 mg capsule 17.2 mg PO BEDTIME PRN (Reason: constipation) 30 Days Qty: 60 6RF famotidine [Pepcid] 40 mg tablet 40 mg PO BEDTIME 30 Days Qty: 30 6RF simethicone 180 mg capsule 180 mg PO TID 30 Days Qty: 90 3RF Rx Instructions: after meals dicyclomine 10 mg capsule 20 mg PO TID Qty: 60 3RF Referrals: Mitch Ramirez [Physician] - 2 days Stand Alone Forms: Work/School Release
[2022-11-15 12:22] VITALS: BP 122/81; PULSE 85; RESP 16; TEMP 36.8; O2SAT 100
--- NOTE | 2022-11-15 12:35 | ECG_ITS ---
Test Reason : FALL Blood Pressure : / mmHG Vent. Rate : 076 BPM Atrial Rate : 076 BPM P-R Int : 164 ms QRS Dur : 080 ms QT Int : 390 ms P-R-T Axes : 054 052 052 degrees QTc Int : 438 ms Normal sinus rhythm Normal ECG When compared with ECG of 22-APR-2021 10:26, No significant change was found Referred By: Sharon Tabares Electronically Signed By:MARION GUY MD
[2022-11-15 13:08] LABS: MANUAL DIFF FLAG NO
[2022-11-15 13:10] LABS: Basophils Percent Auto 0.2 % (0-2); Eosinophils Absolute Auto 0.2 X10*3/uL (0.0-0.4); Eosinophils Percent Auto 3.6 % (0-4); Hematocrit 40.1 % (37.0-47.0); Hemoglobin 13.7 g/dl (12.0-16.0); Imm Gran Abs Auto 0.01 X10*3/uL (0.00-0.03); Imm Gran Pct Auto 0.2 % (0.0-0.4); Lymphocytes Absolute Auto 2.1 X10*3/uL (1.2-4.9); Lymphocytes Percent Auto 45.3 % (20-40); Mean Corpuscular HGB Conc 34.2 g/dl (31.0-35.0); Mean Corpuscular Hemoglobin 28.5 pg (27.0-33.0); Mean Corpuscular Volume 83.4 fL (80.0-98.0); Mean Platelet Volume 9.3 fL (9.4-12.3); Monocytes Absolute Auto 0.5 X10*3/uL (0.1-1.2); Monocytes Percent Auto 9.9 % (2-11); Neutrophils Absolute Auto 1.9 x10*3/uL (2.0-8.3); Neutrophils Percent Auto 40.8 % (45-73); Platelet Count 239 X10*3/uL (160-400); Red Blood Count 4.81 X10*6/uL (4.20-5.50); Red Cell Distribution Width 11.8 % (11.0-16.0); White Blood Count 4.7 X10*3/uL (4.8-10.8)
[2022-11-15 13:32] LABS: Anion Gap 12 (12-20); Blood Urea Nitrogen 12 mg/dL (9-16); Calcium 9.1 mg/dL (8.4-10.2); Carbon Dioxide 25 mmol/L (22-29); Chloride 109 mmol/L (96-108); Creatinine Clr Calc Pharmacy 105.7; Estimated Glomerular Filt Rate > 60; Glucose Random 79 mg/dL (60-115); Potassium 3.9 mmol/L (3.3-5.1); Sodium 142 mmol/L (135-145)
[2022-11-15 13:44] LABS: Troponin-I High Sensitivity < 2.7 ng/L (<3.5-17.0)
[2022-11-15 14:07] VITALS: BP 117/87; BP 118/79; BP 127/72; PULSE 69; PULSE 74
[2022-11-15] MEDS: Morphine Sulfate Immed Release 15 MG TABLET PO (14:55)
== END 2022-11-15 15:43 | disposition home or self-care (01) ==
PROVIDERS: Physician Assistant; Emergency Provider Emergency Medicine Emergency Medical Services; PCP Internal Medicine
DX: S02.2XXA Fracture of nasal bones, initial encounter for closed fracture (principal); W01.0XXA Fall on same level from slipping, tripping and stumbling without subsequent striking against object, initial encounter; Y93.9 Activity, unspecified; Y92.013 Bedroom of single-family (private) house as the place of occurrence of the external cause; Y99.9 Unspecified external cause status
CPT/HCPCS: 36415; 70450; 70486; 80048; 84484; 85025; 93005; 99284; 99285

== ENCOUNTER → 2022-11-15 12:35 | Outpatient (BNV) | payer OTHER, SELFPAY | PROVIDERS: Emergency Provider Emergency Medicine Emergency Medical Services; PCP Internal Medicine; Visit Provider Internal Medicine Cardiovascular Disease | DX: R55 Syncope and collapse (principal); W19.XXXA Unspecified fall, initial encounter | CPT/HCPCS: 93010 ==

== ENCOUNTER 2022-11-18 11:10 | Outpatient (AMB) | payer OTHER, SELFPAY ==
--- NOTE | 2022-11-18 11:28 | MHC.PC.OV ---
Vital Signs 11/18/22 11:30 Height 5 ft 8 in Weight 196 lb BMI 29.8 BP 118/78 Blood Pressure Location Rt brachial Position Sitting Pulse 91 Pulse Source Pulse Oximeter Pulse Oximetry (%) 99 Oxygen Delivery Method Room Air Intake Visit Reasons: Discuss getting a referral Intake Note: Pt is here today for a ER follow up visit. Pt states that last weekend she fell and she fractured her nose and she would like to be referred to a specialist. Allergies escitalopram [From Lexapro] Allergy (Unknown, Verified 11/18/22 11:34) Palpitations Medication List - Last Reconciled 11/18/22 by Beba Crook MD biotin 1 mg PO DAILY buspirone 5 mg PO BID PRN [CPAP machine start off on auto pap mode; pressure setting 6-16cm of H2O ] [CPAP mask As directed] [CPAP tubing As directed] dicyclomine 20 mg (2 x 10 mg) PO TID doxycycline hyclate 100 mg PO BID 10 days famotidine (Pepcid) 40 mg PO BEDTIME 30 days levothyroxine 150 mcg PO QAM sennosides (senna) 17.2 mg (2 x 8.6 mg) PO BEDTIME PRN 30 days simethicone 180 mg PO TID Tobacco use date assessed: 11/18/22 Dental Screening Dental Screen Date: 11/18/22 Did you have a dental visit in the last 12 months?: Yes Did you have a dental problem in the last 6 months where you did not have access to dental care?: No Was dental information given to patient?: Patient has dentist HPI Discuss getting a referral HPI Details Pt presents for PE and f/u ER visit for nose injury. CT scan showed question of nasal bone fracture. [facility] [place] Medical History Anxiety Arthritis Depression GERD (gastroesophageal reflux disease) Hip pain History of COVID-19 History of ectopic Hypothyroid GRAEME (obstructive sleep apnea) Pneumonia RLS (restless legs syndrome) Surgical History History of bilateral breast reduction surgery History of bilateral salpingectomy History of endometrial ablation History of esophagogastroduodenoscopy (EGD) History of reversal of tubal ligation History of right oophorectomy History of tubal ligation Hx of colonoscopy Family History (Updated 11/18/22 @ 11:36 by JESS Willoughby) Father Colon cancer Mother CVD (cardiovascular disease) Rheumatoid arthritis Thyroid condition Maternal Grandfather No problems noted. Maternal Grandmother HTN (hypertension) Diabetes mellitus CVD (cardiovascular disease) Alzheimers disease Thyroid condition Paternal Grandmother No problems noted. Paternal Grandfather No problems noted. Maternal Aunt Ovarian cancer Breast cancer Thyroid condition Maternal Uncle Diabetes mellitus Son No problems noted. Son No problems noted. Son No problems noted. Sister No problems noted. Sister No problems noted. Brother No problems noted. Brother No problems noted. Brother No problems noted. Brother No problems noted. Social History Housing: Apartment Are you a primary restorative care technician to a significant other at home: No Do you presently have visiting nurse or other home services: No Alcohol intake: never Patient Tobacco Use Status: Never used Tobacco e-Cigarette/Vaping Use: Never Used Current occupational status: employed Sexual orientation: Straight/Heterosexual Gender identity: Female Cognitive needs: No Hearing needs: No Vision needs: Yes (reading glasses) Female Reproductive History Menstrual Age of Menarche: 15 Questionnaire Thrive Questionnaire Date Thrive assessed: 11/07/21 AUDIT C Alcohol Use Questionnaire (AUDIT-C) 1. How often do you have a drink containing alcohol?: Never 3. How often do you have six or more drinks on one occasion?: Never Total Score: 0 JAYA-7 AMB Questionnaire JAYA-7 Date JAYA - 7 assessed: 11/07/21 Source: Developed by Drs. Tavo Ricks, Heather Sin, Alvaro Jane and colleagues, with an educational aleksandra from [employer]. Review of Systems Const All systems reviewed & are unremarkable except as noted in HPI and below Reports no additional complaints Eyes Reports no additional complaints ENT Reports no additional complaints Card Reports no additional complaints Resp Reports no additional complaints GI Reports no additional complaints Reports no additional complaints Physical exam (Primary Care) Vital Signs: Last Vital Signs Pulse 91 11/18/22 11:30 BP 118/78 11/18/22 11:30 Pulse Ox 99 11/18/22 11:30 Oxygen Delivery Method Room Air 11/18/22 11:30 BMI result Body Mass Index 29.8 Tobacco/Smoking Status: Tobacco use Status Tobacco use date assessed 11/18/22 11/18/22 11:36 Patient Tobacco Use Status Never used Tobacco 11/18/22 11:36 e-Cigarette/Vaping Use Never Used 11/18/22 11:29 Thrive Assessment: Date of Thrive Assessment Date Thrive assessed 11/07/21 11/18/22 11:29 Const General: no acute distress HENMT Head: Yes normal to inspection Ears: hearing grossly normal bilaterally General nose exam: Normal external nose present Face and sinus: Yes normal facial exam Teeth and gingiva: dentition normal Eyes General: appearance normal, both eyes and all related structures Neck Neck: Yes no lymphadenopathy and Yes supple Resp Effort & Inspection: normal respiratory effort Auscultation: clear to auscultation bilaterally Cardio Rhythm: regular rhythm Heart sounds: S1 normal heart sound present and S2 normal heart sound present GI Inspection: Yes normal to inspection Palpation (GI): Soft to palpation Percussion: Yes normal to percussion Auscultation: normal bowel sounds Assessment and Plan Assessment & Plan (1) Annual physical exam: Code(s): Z00.00 - Encounter for general adult medical examination without abnormal findings Plan: well balanced diet, exercise discussed. Pt is up to date with mammogram, Orders: Orders Lipid Panel Today Z00.00 - Encounter for general adult medical examination without abnormal findings Medications: Changed From simethicone after meals 180 mg PO TID 30 days 90 caps 3RF To simethicone after meals 180 mg PO TID Coding Level of Care Code Est Pt Prev Care 40-64y(62491) Diagnoses Annual physical exam Z00.00
[2022-11-18 11:30] VITALS: BP 118/78; PULSE 91; O2SAT 99; BMI 29.8
== END 2022-11-18 12:32 | disposition home or self-care (01) ==
PROVIDERS: PCP Internal Medicine; Visit Provider Internal Medicine
DX: Z00.00 Encounter for general adult medical examination without abnormal findings (principal)
CPT/HCPCS: 99396

== ENCOUNTER 2022-11-24 06:28 | Outpatient (REF) | payer OTHER, SELFPAY ==
[2022-11-24 06:36] LABS: MANUAL DIFF FLAG NO
[2022-11-24 07:06] LABS: Basophils Percent Auto 0.2 % (0-2); Eosinophils Absolute Auto 0.2 X10*3/uL (0.0-0.4); Eosinophils Percent Auto 3.1 % (0-4); Hematocrit 40.5 % (37.0-47.0); Hemoglobin 13.6 g/dl (12.0-16.0); Imm Gran Abs Auto 0.01 X10*3/uL (0.00-0.03); Imm Gran Pct Auto 0.2 % (0.0-0.4); Lymphocytes Absolute Auto 2.6 X10*3/uL (1.2-4.9); Mean Corpuscular HGB Conc 33.6 g/dl (31.0-35.0); Mean Corpuscular Hemoglobin 28.6 pg (27.0-33.0); Mean Corpuscular Volume 85.1 fL (80.0-98.0); Mean Platelet Volume 10.1 fL (9.4-12.3); Monocytes Absolute Auto 0.5 X10*3/uL (0.1-1.2); Monocytes Percent Auto 7.5 % (2-11); Neutrophils Absolute Auto 2.8 x10*3/uL (2.0-8.3); Platelet Count 272 X10*3/uL (160-400); Red Blood Count 4.76 X10*6/uL (4.20-5.50); Red Cell Distribution Width 11.9 % (11.0-16.0); White Blood Count 6.1 X10*3/uL (4.8-10.8)
[2022-11-24 07:43] LABS: Alanine Aminotransferase 17 U/L (0-31); Alkaline Phosphatase 82 U/L (39-117); Anion Gap 13 (12-20); Aspartate Amino Transferase 23 U/L (5-31); Bilirubin Total 0.4 mg/dL (0.0-1.0); Blood Urea Nitrogen 12 mg/dL (9-16); Calcium 9.6 mg/dL (8.4-10.2); Carbon Dioxide 23 mmol/L (22-29); Chloride 109 mmol/L (96-108); Cholesterol 192 mg/dL; Estimated Glomerular Filt Rate > 60; Glucose Fasting 104 mg/dL (60-99); HDL Cholesterol 31 mg/dL; LDL Cholesterol Calculated 85 mg/dl; Potassium 3.9 mmol/L (3.3-5.1); Sodium 141 mmol/L (135-145); Total Protein 7.1 g/dL (6.5-8.0); Triglycerides 380 mg/dL
[2022-11-24 07:58] LABS: TSH reflex Free T4 0.41 uIU/mL (0.32-4.0)
== END 2022-11-24 06:29 | disposition home or self-care (01) ==
LOC: HO.LAB 06:28
PROVIDERS: PCP Internal Medicine; Visit Provider Internal Medicine
DX: Z00.00 Encounter for general adult medical examination without abnormal findings (principal); E03.9 Hypothyroidism, unspecified; G47.33 Obstructive sleep apnea (adult) (pediatric)
CPT/HCPCS: 36415; 80053; 80061; 84443; 85025

== ENCOUNTER 2023-05-26 13:40 | Outpatient (AMB) | payer OTHER, SELFPAY ==
[2023-05-26 14:22] VITALS: BP 125/80; PULSE 97; O2SAT 97; BMI 31.5
--- NOTE | 2023-05-26 14:22 | MHC.PC.OV ---
Vital Signs 05/26/23 14:22 Height 5 ft 8 in Weight 207 lb BMI 31.5 BP 125/80 Blood Pressure Location Lt brachial Position Sitting Pulse 97 Pulse Source Pulse Oximeter Pulse Oximetry (%) 97 Oxygen Delivery Method Room Air Intake Visit Reasons: Discuss Referral To Water Safety Instructor Intake Note: Pt is here today for a follow up visit to discuss referral to Water Safety Instructor. Allergies escitalopram [From Lexapro] Allergy (Unknown, Verified 05/26/23 14:27) Palpitations Medication List - Last Reconciled 05/26/23 by Beba Crook MD biotin 1 mg PO DAILY buspirone 5 mg PO BID PRN [CPAP machine start off on auto pap mode; pressure setting 6-16cm of H2O ] [CPAP mask As directed] [CPAP tubing As directed] dicyclomine 20 mg (2 x 10 mg) PO TID famotidine (Pepcid) 40 mg PO BEDTIME 30 days levothyroxine 150 mcg PO QAM sennosides (senna) 17.2 mg (2 x 8.6 mg) PO BEDTIME PRN 30 days simethicone 180 mg PO TID Tobacco use date assessed: 05/26/23 Dental Screening Dental Screen Date: 05/26/23 Did you have a dental visit in the last 12 months?: Yes Did you have a dental problem in the last 6 months where you did not have access to dental care?: No Was dental information given to patient?: Patient has dentist HPI Discuss Referral To Water Safety Instructor HPI Details Pt presents for follow-up of sleep apnea. She has been using CPAP every night but reports having many apnea episodes despite maximum pressure set up at 20 cm H20 and feeling tired during a day. Pt would like a referral to . Hypothyroidism stable on levothyroxine. [facility] Medical History Anxiety Arthritis Depression GERD (gastroesophageal reflux disease) Hip pain History of COVID-19 History of ectopic Hypothyroid GRAEME (obstructive sleep apnea) Pneumonia RLS (restless legs syndrome) Surgical History History of bilateral breast reduction surgery History of bilateral salpingectomy History of endometrial ablation History of esophagogastroduodenoscopy (EGD) History of reversal of tubal ligation History of right oophorectomy History of tubal ligation Hx of colonoscopy Family History (Updated 11/18/22 @ 11:36 by JESS Willoughby) Father Colon cancer Mother CVD (cardiovascular disease) Rheumatoid arthritis Thyroid condition Maternal Grandfather No problems noted. Maternal Grandmother HTN (hypertension) Diabetes mellitus CVD (cardiovascular disease) Alzheimers disease Thyroid condition Paternal Grandmother No problems noted. Paternal Grandfather No problems noted. Maternal Aunt Ovarian cancer Breast cancer Thyroid condition Maternal Uncle Diabetes mellitus Son No problems noted. Son No problems noted. Son No problems noted. Sister No problems noted. Sister No problems noted. Brother No problems noted. Brother No problems noted. Brother No problems noted. Brother No problems noted. Social History Housing: Apartment Are you a primary director career to a significant other at home: No Do you presently have visiting nurse or other home services: No Alcohol intake: never Patient Tobacco Use Status: Never used Tobacco e-Cigarette/Vaping Use: Never Used Current occupational status: employed Sexual orientation: Straight/Heterosexual Gender identity: Female Cognitive needs: No Hearing needs: No Vision needs: Yes (reading glasses) Female Reproductive History Menstrual Age of Menarche: 15 Questionnaire PHQ-9 Over the last 2 weeks, how often have you been bothered by any of the following problems? 1. Little interest or pleasure in doing things: not at all 2. Feeling down, depressed, or hopeless: not at all 3. Trouble falling or staying asleep, or sleeping too much: nearly every day 4. Feeling tired or having little energy: nearly every day 5. Poor appetite or overeating: not at all 6. Feeling bad about yourself - or that you are a failure or have let yourself or your family down: not at all 7. Trouble concentrating on things, such as reading the newspaper or watching television: not at all 8. Moving or speaking so slowly that other people could have noticed. Or the opposite - being so fidgety or restless that you have been moving around a lot more than usual: not at all 9. Thoughts that you would be better off or of hurting yourself in some way: not at all Total score: 6 Depression Screening Interpretation: Negative Depression Screening Done: Yes Source: Developed by Drs. Tavo Ricks, Alvaro Cancino and colleagues, with an educational aleksandra from [employer]. Thrive Questionnaire Date Thrive assessed: 05/26/23 I am a: Patient What is your living situation today?: I have a steady place to live Within the past 12 months, did the food you bought not last and you didn't have the money to get more?: Never true Within the past 12 months, did you worry whether your food would run out before you got money to buy more?: Never true Do you have trouble paying for medicines?: No Do you have trouble getting transportation to medical appointments?: No Do you have trouble paying your heating and electricity bill?: No Do you have trouble taking care of your child, family member or friend?: No Do you have trouble with day-to-day activities such as bathing, preparing meals, shopping, managing finances, etc.?: No Are you currently unemployed and looking for a job?: No Are you interested in more education?: No Please select the resources that you would like help with: None Currently or been in a relationship where the following occur: no concerns reported THRIVE Score: 0 AUDIT C Alcohol Use Questionnaire (AUDIT-C) 1. How often do you have a drink containing alcohol?: Never 3. How often do you have six or more drinks on one occasion?: Never Total Score: 0 JAYA-7 AMB Questionnaire JAYA-7 Date JAYA - 7 assessed: 05/26/23 Feeling nervous, anxious, or on edge: 0 = Not at all Not being able to stop or control worryin = Not at all Worrying too much about different things: 0 = Not at all Trouble relaxin = Not at all Being so restless that it is hard to sit still: 0 = Not at all Becoming easily annoyed or irritable: 0 = Not at all Feeling afraid as if something awful might happen: 0 = Not at all Total JAYA-7 score (0-4 normal; 5-9 mild; 10-14 moderate; 15-21 severe): 0 Source: Developed by Heather Fulton Kurt Kroenke and colleagues, with an educational aleksandra from [employer]. Review of Systems Const All systems reviewed & are unremarkable except as noted in HPI and below Reports no additional complaints Eyes Reports no additional complaints ENT Reports no additional complaints Card Reports no additional complaints Resp Reports no additional complaints GI Reports no additional complaints Physical exam (Primary Care) Vital Signs: Last Vital Signs Pulse 97 05/26/23 14:22 BP 138/90 H 05/26/23 14:22 Pulse Ox 97 05/26/23 14:22 Oxygen Delivery Method Room Air 05/26/23 14:22 BMI result Body Mass Index 31.5 Tobacco/Smoking Status: Tobacco use Status Tobacco use date assessed 05/26/23 05/26/23 14:28 Patient Tobacco Use Status Never used Tobacco 05/26/23 14:28 e-Cigarette/Vaping Use Never Used 05/26/23 14:23 Depression Screening Interpretation: Negative Thrive Assessment: Date of Thrive Assessment Date Thrive assessed 11/07/21 05/26/23 14:23 Currently or been in a relationship where the following occur: no concerns reported Const General: no acute distress HENMT Head: Yes normal to inspection Ears: hearing grossly normal bilaterally Throat: Yes posterior oropharynx normal Resp Effort & Inspection: normal respiratory effort Auscultation: clear to auscultation bilaterally Cardio Rhythm: regular rhythm Heart sounds: S1 normal heart sound present and S2 normal heart sound present Assessment and Plan Assessment & Plan (1) GRAEME (obstructive sleep apnea): Code(s): G47.33 - Obstructive sleep apnea (adult) (pediatric) Plan: Referred to pulmonology (2) Hypothyroidism: Code(s): E03.9 - Hypothyroidism, unspecified Plan: Continue levothyroxine Orders: Orders Complete Blood Count Auto Diff 7 Months E03.9 - Hypothyroidism, unspecified Comprehensive [place]. Panel Fast 7 Months E03.9 - Hypothyroidism, unspecified Lipid Panel 7 Months E03.9 - Hypothyroidism, unspecified TSH reflex Free T4 7 Months E03.9 - Hypothyroidism, unspecified UA w Microscopic 7 Months E03.9 - Hypothyroidism, unspecified Referrals Pulmonary Medicine Referral G47.33 - Obstructive sleep apnea (adult) (pediatric) Coding Level of Care Code Est Pt Level 3 (76868) Diagnoses GRAEME (obstructive sleep apnea) G47.33 Hypothyroidism E03.9
== END 2023-05-26 14:59 | disposition home or self-care (01) ==
PROVIDERS: PCP Internal Medicine; Visit Provider Internal Medicine
DX: G47.33 Obstructive sleep apnea (adult) (pediatric) (principal); E03.9 Hypothyroidism, unspecified
CPT/HCPCS: 99213

== ENCOUNTER 2023-06-01 07:13 | Outpatient (REF) | payer OTHER, SELFPAY ==
[2023-06-01 08:32] LABS: Cholesterol 194 mg/dL (<200); HDL Cholesterol 35 mg/dL (>40); LDL Cholesterol Calculated 99 mg/dL (<100); Triglycerides 302 mg/dL (<150)
== END 2023-06-01 07:14 | disposition home or self-care (01) ==
LOC: HO.LAB 07:13
PROVIDERS: PCP Internal Medicine; Visit Provider Internal Medicine
DX: Z00.00 Encounter for general adult medical examination without abnormal findings (principal)
CPT/HCPCS: 36415; 80061

== ENCOUNTER 2023-07-06 13:24 | Outpatient (AMB) | payer OTHER, SELFPAY ==
--- NOTE | 2023-07-06 13:27 | MHC.OFFVIS ---
Intake Vital Signs 07/06/23 13:31 Height 5 ft 8 in Weight 209 lb 7.026 oz BMI 31.8 BP 122/70 Pulse 85 Pulse Source Pulse Oximeter Pulse Oximetry (%) 96 Oxygen Delivery Method Room Air Intake Visit Reasons: sleep apnea Domestic Laundry Worker Required: No Senior Vice President & General Counsel: Senior Vice President & General Counsel offered & declined Accompanied by: Self / Same As Patient Allergies escitalopram [From Lexapro] Allergy (Unknown, Verified 07/06/23 13:32) Palpitations Medication List - Last Reconciled 07/06/23 by Miesha Allison LPN biotin 1 mg PO DAILY buspirone 5 mg PO BID PRN [CPAP machine start off on auto pap mode; pressure setting 6-16cm of H2O ] [CPAP mask As directed] [CPAP tubing As directed] dicyclomine 20 mg (2 x 10 mg) PO TID famotidine (Pepcid) 40 mg PO BEDTIME 30 days levothyroxine 150 mcg PO QAM sennosides (senna) 17.2 mg (2 x 8.6 mg) PO BEDTIME PRN 30 days simethicone 180 mg PO TID HPI HPI Comments History of Present Illness Details The patient is here for pulmonary evaluation. The patient is a 52 year woman with a known history obstructive sleep apnea. The patient states that she was having significant daytime drowsiness at the time with an elevated [place] score of 11/24. The patient also had headaches frequently. She underwent a sleep study back in 2020, in-lab. She had an AHI of 18 which is consistent with moderate sleep apnea and significant hypoxia. The patient was placed on APAP. She has been on APAP through [employer] ever since. However, she still having significant daytime drowsiness. She still struggling with the machine. Her AHI continues be elevated. The patient had her pressures adjusted based on her elevated AHI but still continues to struggle with it. Her mask was also changed from an F30 to an F20 which seems to be more comfortable. But still hurting her nose. In the office I did have an AirTouch foam F20 mask medium that seem to fit her very well. She will try for now. Also, I will request access to her AirDuo count through her [employer] company, [employer]. Once I can review that I can hopefully adjusted further. However, with so many years of difficulties tolerating her CPAP and still having significant daytime drowsiness with an elevated score of 9/24. Will go ahead and request a titration study at this time. The patient also needs help with her sleep. She is tried multiple other medications without any significant improvement. I do believe trazodone will be a good option for her that she can use as needed. [facility] Medical History (Updated 07/06/23 @ 21:35 by Shreyas Gonsalez MD) Insomnia Hypothyroid History of COVID-19 Hip pain Arthritis GRAEME (obstructive sleep apnea) Depression Anxiety GERD (gastroesophageal reflux disease) RLS (restless legs syndrome) History of ectopic Pneumonia Surgical History Hx of colonoscopy History of esophagogastroduodenoscopy (EGD) History of right oophorectomy History of bilateral salpingectomy History of reversal of tubal ligation History of tubal ligation History of endometrial ablation History of bilateral breast reduction surgery Family History (Updated 11/18/22 @ 11:36 by JESS Willoughby) Father Colon cancer Mother CVD (cardiovascular disease) Rheumatoid arthritis Thyroid condition Maternal Grandfather No problems noted. Maternal Grandmother HTN (hypertension) Diabetes mellitus CVD (cardiovascular disease) Alzheimers disease Thyroid condition Paternal Grandmother No problems noted. Paternal Grandfather No problems noted. Maternal Aunt Ovarian cancer Breast cancer Thyroid condition Maternal Uncle Diabetes mellitus Son No problems noted. Son No problems noted. Son No problems noted. Sister No problems noted. Sister No problems noted. Brother No problems noted. Brother No problems noted. Brother No problems noted. Brother No problems noted. Social History (Updated 07/06/23 @ 13:33 by Miesha Allison LPN) Housing: Apartment Are you a primary out of school hours care worker to a significant other at home: No Do you presently have visiting nurse or other home services: No Alcohol intake: never Patient Tobacco Use Status: Never used Tobacco Smoked in Last 30 Days: No e-Cigarette/Vaping Use: Never Used Current occupational status: employed Sexual orientation: Straight/Heterosexual Gender identity: Female Cognitive needs: No Hearing needs: No Vision needs: Yes (reading glasses) Female Reproductive History Menstrual Age of Menarche: 15 Review of Systems Const Reports daytime sleepiness, Reports difficulty sleeping and Reports headache(s) Eyes Reports no additional complaints ENT Reports headache(s) Card Denies chest pain Resp Denies cough and Denies wheezing GI Reports abdominal pain Musc Reports no additional complaints Skin/Breast Denies rash Neuro Reports headache(s) Aller/Immun Denies wheezing Physical Exam Vital Signs: Last Vital Signs Pulse 85 07/06/23 13:31 BP 122/70 07/06/23 13:31 Pulse Ox 96 07/06/23 13:31 Oxygen Delivery Method Room Air 07/06/23 13:31 BMI result Body Mass Index 31.8 Const General: comfortable HEENT Head: Yes normocephalic Neck Neck: Yes supple Chest Chest palpation & inspection: normal inspection of the chest Resp Effort & Inspection: normal respiratory effort Auscultation: clear to auscultation bilaterally Cardio Heart sounds: S1 normal heart sound present and S2 normal heart sound present Skin General skin exam: no rashes or lesions noted Extrem General: Yes no clubbing, cyanosis or edema Assessment & Plan Assessment & Plan (1) GRAEME (obstructive sleep apnea): Code(s): G47.33 - Obstructive sleep apnea (adult) (pediatric) (2) Insomnia: Code(s): G47.00 - Insomnia, unspecified Qualifiers: Insomnia type: primary Qualified Code(s): F51.01 - Primary insomnia Plan Still struggling to improve AHI. Has not responded to previous APAP adjustements. Will benifit from a CPAP/BIPAP titration Trial new mask; F20 medium foam airtouch mask start Trazodone 25-50mg QHS for sleep F/U 2-3 months Orders: Orders RT PSG in-lab sleep titration Today Medications: New trazodone 50 mg PO BEDTIME 30 days PRN 30 tabs 6RF sleep Coding Level of Care Code New Pt Level 4 (70371) Diagnoses GRAEME (obstructive sleep apnea) G47.33 Primary insomnia F51.01 Insomnia type: primary Time Spent (min) 36
[2023-07-06 13:31] VITALS: BP 122/70; PULSE 85; O2SAT 96; BMI 31.8
== END 2023-07-07 08:21 | disposition home or self-care (01) ==
PROVIDERS: PCP Internal Medicine; Visit Provider Hospitalist
DX: G47.33 Obstructive sleep apnea (adult) (pediatric) (principal); F51.01 Primary insomnia
CPT/HCPCS: 99204

== ENCOUNTER → 2023-07-06 13:24 | Outpatient (BNVA) | payer OTHER, SELFPAY | PROVIDERS: PCP Internal Medicine; Visit Provider Hospitalist ==

== ENCOUNTER → 2023-07-15 19:30 | Outpatient (REF) | payer OTHER, SELFPAY | LOC: HO.SL 19:30 | PROVIDERS: PCP Internal Medicine; Visit Provider Hospitalist | DX: G47.33 Obstructive sleep apnea (adult) (pediatric) (principal) | CPT/HCPCS: 95811 ==

== ENCOUNTER → 2023-07-18 19:30 | Outpatient (BNV) | payer OTHER, SELFPAY | PROVIDERS: PCP Internal Medicine; Visit Provider Internal Medicine | DX: G47.33 Obstructive sleep apnea (adult) (pediatric) (principal) | CPT/HCPCS: 95811 ==

== ENCOUNTER 2023-08-05 08:49 | Outpatient (AMB) | payer OTHER, SELFPAY ==
--- NOTE | 2023-08-05 09:06 | MHC.OFFWIV ---
Intake Vital Signs 08/05/23 09:15 Height 5 ft 8 in Weight 210 lb BMI 31.9 BP 118/80 Blood Pressure Location Lt brachial Position Sitting Pulse 90 Pulse Source Pulse Oximeter Temp 97.8 F Temp Source Temporal Artery Scan Pulse Oximetry (%) 98 Oxygen Delivery Method Room Air Intake Visit Reasons: EP back pain Intake Note: pt s here for back pain middle of the back, denies injury and has been ngoing pain for 4 weeks Patient Tobacco Use Status: Never used Tobacco Allergies escitalopram [From Lexapro] Allergy (Unknown, Verified 08/05/23 09:16) Palpitations Do you need a note to return to daycare/school/sports/work: Yes HPI HPI Comments History of Present Illness Details 52 y/o female patient who presents to walk in clinic with c/o mid lower back pain x 4 weeks. [facility] Medical History (Updated 07/21/23 @ 10:58 by Shreyas Gonsalez MD) GRAEME on CPAP Chronic hypercapnic respiratory failure Insomnia Hypothyroid History of COVID-19 Hip pain Arthritis GRAEME (obstructive sleep apnea) Depression Anxiety GERD (gastroesophageal reflux disease) RLS (restless legs syndrome) History of ectopic Pneumonia Surgical History Hx of colonoscopy History of esophagogastroduodenoscopy (EGD) History of right oophorectomy History of bilateral salpingectomy History of reversal of tubal ligation History of tubal ligation History of endometrial ablation History of bilateral breast reduction surgery Family History (Updated 11/18/22 @ 11:36 by JESS Willoughby) Father Colon cancer Mother CVD (cardiovascular disease) Rheumatoid arthritis Thyroid condition Maternal Grandfather No problems noted. Maternal Grandmother HTN (hypertension) Diabetes mellitus CVD (cardiovascular disease) Alzheimers disease Thyroid condition Paternal Grandmother No problems noted. Paternal Grandfather No problems noted. Maternal Aunt Ovarian cancer Breast cancer Thyroid condition Maternal Uncle Diabetes mellitus Son No problems noted. Son No problems noted. Son No problems noted. Sister No problems noted. Sister No problems noted. Brother No problems noted. Brother No problems noted. Brother No problems noted. Brother No problems noted. Social History (Updated 07/06/23 @ 13:33 by Miesha Allison LPN) Housing: Apartment Are you a primary acute care nursing assistant to a significant other at home: No Do you presently have visiting nurse or other home services: No Alcohol intake: never Patient Tobacco Use Status: Never used Tobacco e-Cigarette/Vaping Use: Never Used Current occupational status: employed Sexual orientation: Straight/Heterosexual Gender identity: Female Cognitive needs: No Hearing needs: No Vision needs: Yes (reading glasses) Female Reproductive History Menstrual Age of Menarche: 15 Physical Exam Vital Signs: Last Vital Signs Temp 97.8 F 08/05/23 09:15 Pulse 90 08/05/23 09:15 BP 118/80 08/05/23 09:15 Pulse Ox 98 08/05/23 09:15 Oxygen Delivery Method Room Air 08/05/23 09:15 BMI result Body Mass Index 31.9 Const General: no acute distress; No comfortable Orientation/consciousness: patient oriented x3 Back/Spine/Pelvis Thoracic/Lumbar Spine: thoracic and lumbar spine normal to inspection, thoraco-lumbar ROM limited (Due to pain), thoraco-lumbar spasm and thoracic spinal tenderness Neuro General: patient oriented x3, gait normal (normal but slow due to pain) and moves all extremities Psych Speech and movement: Normal speech and movement present Assessment & Plan Assessment & Plan (1) Acute midline thoracic back pain: Code(s): M54.6 - Pain in thoracic spine Plan: Take medications as directed. Orders: Referrals Physical Medicine and Rehabilitation Referral M54.6 - Pain in thoracic spine Medications: New ibuprofen 600 mg PO Q6H PRN 20 tabs 0RF pain M54.6 - Pain in thoracic spine lidocaine 5% leave on most painful area for up to 12 hrs 1 patch topical DAILY 30 ea 0RF M54.6 - Pain in thoracic spine metaxalone 800 mg PO TID 20 tabs 0RF M54.6 - Pain in thoracic spine Coding Level of Care Code Est Pt Level 3 (70698) Diagnoses Acute midline thoracic back pain M54.6 Time Spent (min) 15
[2023-08-05 09:15] VITALS: BP 118/80; PULSE 90; TEMP 36.6; O2SAT 98; BMI 31.9
== END 2023-08-05 09:42 | disposition home or self-care (01) ==
PROVIDERS: PCP Internal Medicine; Visit Provider Nurse Practitioner Family
DX: M54.6 Pain in thoracic spine (principal)
CPT/HCPCS: 99213

== ENCOUNTER 2023-08-19 11:28 | Outpatient (REF) | payer OTHER, SELFPAY ==
--- NOTE | ~2023-08-19 | XR_ITS ---
EXAMINATION: XR LUMBOSACRAL SPINE CLINICAL INFORMATION: Radiculopathy lumbar region, patient stated pain. COMPARISON: None available. TECHNIQUE: Three views of the lumbosacral spine. FINDINGS: Facet arthritis in the lower lumbar spine. Minimal rightward curvature of the lumbar spine. Bilateral sacroiliac joints are symmetric. Mild multilevel lumbar spondylosis. Lumbar vertebral body heights are preserved. XR/XR lumbar spine 2-3V IMPRESSION: Mild multilevel lumbar spondylosis.
== END 2023-08-19 11:29 | disposition home or self-care (01) ==
LOC: HO.XRAY 11:28
PROVIDERS: Visit Provider Internal Medicine
DX: M54.16 Radiculopathy, lumbar region (principal)
CPT/HCPCS: 72100

== ENCOUNTER 2023-09-06 15:00 | Outpatient (RCR) | payer OTHER, SELFPAY ==
--- NOTE | 2023-08-19 09:52 | MHC.PT.EP ---
[facility] [place] Office [place] Office [place] [facility] [address] [phone] F: [phone] F: [phone] F: [phone] F: [phone] Physical Therapy Plan of Care Date of Evaluation: 08/17/23 Date of Surgery: Diagnosis: mid back pain Assessment: Pt is a 52yo female who presents with sub-acute back pain, described as stabbing/sharp, preventing her from walking and moving normally. Skilled PT indicated to reduce pain, normalize her posture and gait, teach her management technique at home including exercises. Pt in agreement with POC and is motivated to participate. Frequency and Duration: The patient will be seen 2x/week x 4 weeks Short Term Goals: 1. In 2 weeks patient will be able to complete rolling in bed without increased back pain/spasm. 2. In 2 weeks, patient will be I with HEP for daily stretching and TAC exercises. Architectural Inspector Goals: 1. Pt will ambulate with normal gait pattern with trunk in midline. 2. Improve TAC MMT to 4/5 with ability to hold contraction x 30 seconds to improve spinal stability. 3. Improve KEMAL score by 25% in 4 weeks. Treatment Plan: Modalities to reduce pain, spasms and effusion. Manual therapy to restore motion and function. Therapeutic exercise to improve strength and flexibility. Neuromuscular re-education for posture and balance. Therapeutic activities to return to functional activities of daily living. Electronically signed by: Meenakshi Molina PT, DPT Please sign and return to therapist. Thank you for your referral.
--- NOTE | 2024-02-17 14:18 | MHC.PT.DC ---
[facility] [place] Office [place] Office [place] [facility] [address] Arina Rush [address] [phone] F: [phone] F: [phone] F: [phone] F: [phone] Physical Therapy Discharge Report Diagnosis: mid back pain Date of Surgery: Date of Evaluation: 08/17/23 Date of Discharge: 09/06/23 Treatments to Date: 5 Cancellations to Date: No Shows to Date: Discharge Status: Improved Function Patient Elected to Stop Discharge Summary: Pt is a 52yo female who presents with sub-acute back pain, described as stabbing/sharp, preventing her from walking and moving normally. Skilled PT indicated to reduce pain, normalize her posture and gait, teach her management technique at home including exercises. Pt in agreement with POC and is motivated to participate. Pt participated in 5 treatment sessions, noted some improvement in pain and function. Pt did not f/u with additional appointments. Thank you for this referral. Electronically signed by: Meenakshi Molina PT, DPT Please sign and return to therapist. Thank you for your referral.
== END 2024-02-17 14:19 | disposition home or self-care (01) ==
LOC: HO.PT 15:00
PROVIDERS: PCP Internal Medicine; Visit Provider Nurse Practitioner Family
DX: M54.6 Pain in thoracic spine (principal)
CPT/HCPCS: 97014; 97140; 97161; 97530

== ENCOUNTER 2023-09-15 15:22 | Outpatient (AMB) | payer OTHER, SELFPAY ==
[2023-09-15 15:28] VITALS: BP 119/73; PULSE 94; BMI 32.2
--- NOTE | 2023-09-15 15:28 | MHC.OFFVIS ---
Vital Signs 09/15/23 15:28 Height 5 ft 8 in Weight 211 lb 10.3 oz BMI 32.2 BP 119/73 Blood Pressure Location Rt brachial Position Sitting Pulse 94 Intake Visit Reasons: Recall Colonoscopy - last one @ [facility] Intake Note: Patient presents to in office visit today for recall colonoscopy. CC: Patient states that she continues having abdominal bloating, constipation sometimes, and other times lose stools. 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 I explained that was small-bowel bacterial overgrowth we frequently need to retreat up to 3 times any year to gain a sustained response. We will increase the bentyl to #2 10mg tabs tid, another round of flagyl, and add simethicone and a pancreatic elastase. ROV 4 weeks. (2) Rectal spasm: ?Code(s): K59.4 - Anal spasm (3) GERD (gastroesophageal reflux disease): ?Comment: 11/2017 EGD with bx, chronic gastritis [facility] ?Code(s): K21.9 - Gastro-esophageal reflux disease without esophagitis (4) Tubulovillous adenoma of large intestine: ?Comment: 06/2020 colonoscopy with multiple TVA and TAs, repeat in 3 years or 2023 ?Code(s): D12.6 - Benign neoplasm of colon, unspecified (5) Loose stools: ?Code(s): R19.5 - Other fecal abnormalities ? ? ? Orders: Orders Pancreatic Elastase-1 12/10/21 R14.0 - Abdominal distension (gaseous), R19.5 - Other fecal abnormalities ? Medications: New simethicone ?? after meals 180 mg PO TID 90 caps 3RF 30 days ? ? Changed From dicyclomine 10 mg? PO TID 60 caps 3RF R10.9 - Unspecified abdominal pain ? To dicyclomine 20 mg (2 x 10 mg) PO TID 60 caps 3RF R10.9 - Unspecified abdominal pain ? Refilled metronidazole 500 mg PO TID 30 tabs 0RF 10 days ? ? LABS: Pancreatic a last taste has not been obtained TODAY'S VISIT PATIENT HAS BEEN LOST TO FOLLOW-UP since 11/2021 and is referred today for a recall colonoscopy. He had multiple polyps in 2020 and a family history of colon cancer. She still struggles with IBS-M but has not found relief with any prior medications, we discuss the use of peppermint tea for rectal spasms - fortunately this has not been as often. She has an unspecified respiratory problem that she says is not asthma and her GRAEME is controlled. She had a recent Hyst and had trouble coming out of sedation, but not with prior colonoscopy sedation. No ID problems. She has a hx of multiple polyposis and TVA. We discuss possible creon for her bloating but she does not want to try that at this time. [facility] Medical History (Updated 09/15/23 @ 15:39 by TRACIE Champion) GRAEME on CPAP Well woman exam Annual physical exam Arthritis Pneumonia Chronic hypercapnic respiratory failure Insomnia Hypothyroid History of COVID-19 Hip pain GRAEME (obstructive sleep apnea) Depression Anxiety GERD (gastroesophageal reflux disease) RLS (restless legs syndrome) History of ectopic Surgical History Hx of colonoscopy History of esophagogastroduodenoscopy (EGD) History of right oophorectomy History of bilateral salpingectomy History of reversal of tubal ligation History of tubal ligation History of endometrial ablation History of bilateral breast reduction surgery Family History Father Colon cancer Mother CVD (cardiovascular disease) Rheumatoid arthritis Thyroid condition Maternal Grandfather No problems noted. Maternal Grandmother HTN (hypertension) Diabetes mellitus CVD (cardiovascular disease) Alzheimers disease Thyroid condition Paternal Grandmother No problems noted. Paternal Grandfather No problems noted. Maternal Aunt Ovarian cancer Breast cancer Thyroid condition Maternal Uncle Diabetes mellitus Son No problems noted. Son No problems noted. Son No problems noted. Sister No problems noted. Sister No problems noted. Brother No problems noted. Brother No problems noted. Brother No problems noted. Brother No problems noted. Social History Housing: Apartment Are you a primary restorative care technician to a significant other at home: No Do you presently have visiting nurse or other home services: No Alcohol intake: never Patient Tobacco Use Status: Never used Tobacco e-Cigarette/Vaping Use: Never Used Current occupational status: employed Sexual orientation: Straight/Heterosexual Gender identity: Female Cognitive needs: No Hearing needs: No Vision needs: Yes (reading glasses) Female Reproductive History Menstrual Age of Menarche: 15 Review of Systems Const Reports fatigue, Denies fever(s), Denies night sweats, Denies poor appetite and Denies weight loss ENT Reports Normal hearing present, Denies dental pain, Denies dysphagia, Denies hearing loss, Denies mouth pain, Denies odynophagia, Denies throat swelling, Denies tongue swelling and Reports other (Dentition adequate) Card Reports no additional complaints Resp Reports no additional complaints GI Details: Denies abdominal pain, Denies melena, Reports bloating, Denies hematochezia, Denies constipation, Denies GI cramping, Denies dysphagia, Denies excessive flatus, Denies early satiety, Denies heartburn, Denies diarrhea, Denies nausea, Denies odynophagia, Denies vomiting and Denies hematemesis Skin/Breast Denies pruritus, Denies lesions, Denies rash and Denies jaundice Neuro Reports Normal hearing present and Denies Abnormal speech present Endo Reports fatigue Aller/Immun Denies throat swelling and Denies tongue swelling Physical Exam Vital Signs: Last Vital Signs Pulse 94 09/15/23 15:28 BP 119/73 09/15/23 15:28 BMI result Body Mass Index 32.2 Const General: cooperative, no acute distress, well developed and well groomed Nutritional Appearance: well nourished and obese Orientation/consciousness: oriented to person, oriented to place and oriented to time Limitations: No language barrier HEENT Head: Yes normocephalic and Yes atraumatic Eyes General: appearance normal, both eyes and all related structures Pupils: Equal, round and reactive pupils present Neck Neck: Yes normal visual inspection and Yes no lymphadenopathy Thyroid: Thyroid normal Resp Effort & Inspection: normal respiratory effort and able to speak in complete sentences Auscultation: clear to auscultation bilaterally Cardio Rate: regular rate Rhythm: regular rhythm Heart sounds: Normal, physiologic split S2 sound present Peripheral pulses: radial pulses present and posterior tibial pulses present GI Inspection: No distended, Yes Abdominal panniculus present, Yes obesity and Yes striae Palpation (GI): Soft to palpation, nontender, no guarding, not rigid and No hepatosplenomegaly present Percussion: Yes normal to percussion Auscultation: normal bowel sounds Rectal Exam - Female: deferred Abdomen image: 1. surgical scars 2. 3. Skin General skin exam: no rashes or lesions noted, turgor normal, skin not dry, no jaundice, No spider nevi and no striae Rashes: no rashes Nails: normal Neuro General: oriented to person, oriented to place and oriented to time Cranial nerves: Yes Equal, round and reactive pupils present and Yes Normal hearing present Speech: No Abnormal speech present Extrem General: Yes normal to inspection, No clubbing, No cyanosis and No edema Psych Appearance: grossly normal and well kempt Mental Status: mental status grossly normal Speech and movement: Normal speech and movement present Affect: normal affect Attitude: cooperative Thought process: Normal thought process present and not confabulating Thought content: Normal thought content present Insight: Fair insight present (Psych) Judgement: Fair judgement present (Psych) Assessment & Plan Assessment & Plan (1) Tubulovillous adenoma of large intestine: Comment: 06/2020 colonoscopy with multiple TVA and TAs, repeat in 3 years or 2023 Code(s): D12.6 - Benign neoplasm of colon, unspecified Category: Medical (2) GRAEME (obstructive sleep apnea): Code(s): G47.33 - Obstructive sleep apnea (adult) (pediatric) Category: Medical (3) Chronic hypercapnic respiratory failure: Code(s): J96.12 - Chronic respiratory failure with hypercapnia Category: Medical (4) Pre-op examination: Code(s): Z01.818 - Encounter for other preprocedural examination Category: Medical Plan PATIENT HAS BEEN LOST TO FOLLOW-UP since 11/2021 and is referred today for a recall colonoscopy. He had multiple polyps in 2020 and a family history of colon cancer. She still struggles with IBS-M but has not found relief with any prior medications, we discuss the use of peppermint tea for rectal spasms - fortunately this has not been as often. She has an unspecified respiratory problem that she says is not asthma and her GRAEME is controlled. She had a recent Hyst and had trouble coming out of sedation, but not with prior colonoscopy sedation. No ID problems. She has a hx of multiple polyposis and TVA. We discuss possible creon for her bloating but she does not want to try that at this time. Orders: Orders Complete Blood Count Auto Diff Today D12.6 - Benign neoplasm of colon, unspecified, Z01.818 - Encounter for other preprocedural examination Colonoscopy - GI Use Only Today D12.6 - Benign neoplasm of colon, unspecified, Z01.818 - Encounter for other preprocedural examination Comprehensive Met. Panel Today D12.6 - Benign neoplasm of colon, unspecified, Z01.818 - Encounter for other preprocedural examination Medications: New sodium,potassium,mag sulfates 17.5-3.13-1.6 gram (Suprep Bowel Prep Kit) 480 mL orally; FOR COLONOSCOPY PREP 354 mL 0RF bisacodyl (Dulcolax (bisacodyl)) 10 mg (2 x 5 mg) PO BEDTIME 4 tabs 0RF 2 days Discontinued famotidine (Pepcid) Discontinued Reason: Doctor's Order 40 mg PO BEDTIME 30 days 30 tabs 6RF K21.9 - Gastro-esophageal reflux disease without esophagitis dicyclomine Discontinued Reason: Doctor's Order 20 mg (2 x 10 mg) PO TID 60 caps 3RF R10.9 - Unspecified abdominal pain Coding Level of Care Code Est Pt Level 4 (14239) Diagnoses Tubulovillous adenoma of large intestine D12.6 GRAEME (obstructive sleep apnea) G47.33 Chronic hypercapnic respiratory failure J96.12 Pre-op examination Z01.818
== END 2023-09-15 16:02 | disposition home or self-care (01) ==
LOC: HO.HGI 15:23
PROVIDERS: PCP Internal Medicine; Visit Provider Nurse Practitioner
DX: D12.6 Benign neoplasm of colon, unspecified (principal); G47.33 Obstructive sleep apnea (adult) (pediatric); J96.12 Chronic respiratory failure with hypercapnia; Z01.818 Encounter for other preprocedural examination
CPT/HCPCS: 99214

== ENCOUNTER → 2023-09-15 15:22 | Outpatient (BNVA) | payer OTHER, SELFPAY | PROVIDERS: PCP Internal Medicine; Visit Provider Nurse Practitioner ==

== ENCOUNTER 2023-09-21 11:53 | Outpatient (REF) | payer OTHER, SELFPAY ==
[2023-09-21 12:10] LABS: MANUAL DIFF FLAG NO
[2023-09-21 12:29] LABS: Basophils Percent Auto 0.3 % (0-2); Eosinophils Absolute Auto 0.1 X10*3/uL (0.0-0.4); Eosinophils Percent Auto 2.7 % (0-4); Hematocrit 38.3 % (37.0-47.0); Imm Gran Abs Auto 0.01 X10*3/uL (0.00-0.03); Imm Gran Pct Auto 0.3 % (0.0-0.4); Lymphocytes Absolute Auto 1.8 X10*3/uL (1.2-4.9); Lymphocytes Percent Auto 47.7 % (20-40); Mean Corpuscular HGB Conc 33.9 g/dl (31.0-35.0); Mean Corpuscular Hemoglobin 29.1 pg (27.0-33.0); Mean Corpuscular Volume 85.7 fL (80.0-98.0); Mean Platelet Volume 9.6 fL (9.4-12.3); Monocytes Absolute Auto 0.4 X10*3/uL (0.1-1.2); Monocytes Percent Auto 10.9 % (2-11); Neutrophils Absolute Auto 1.4 x10*3/uL (2.0-8.3); Neutrophils Percent Auto 38.1 % (45-73); Platelet Count 235 X10*3/uL (160-400); Red Blood Count 4.47 X10*6/uL (4.20-5.50); Red Cell Distribution Width 12.3 % (11.0-16.0); White Blood Count 3.7 X10*3/uL (4.8-10.8)
[2023-09-21 12:53] LABS: Alanine Aminotransferase 12 U/L (0-31); Albumin Level 4.2 g/dL (3.5-5.0); Alkaline Phosphatase 94 U/L (39-117); Anion Gap 13 (12-20); Aspartate Amino Transferase 15 U/L (5-31); Bilirubin Total 0.4 mg/dL (0.0-1.0); Blood Urea Nitrogen 15 mg/dL (9-16); Calcium 9.3 mg/dL (8.4-10.2); Carbon Dioxide 26 mmol/L (22-29); Chloride 107 mmol/L (96-108); Estimated Glomerular Filt Rate 55; Glucose Random 113 mg/dL (60-115); Sodium 142 mmol/L (135-145); Total Protein 7.4 g/dL (6.5-8.0)
== END 2023-09-21 11:54 | disposition home or self-care (01) ==
LOC: HO.LAB 11:53
PROVIDERS: PCP Internal Medicine; Visit Provider Nurse Practitioner
DX: Z01.818 Encounter for other preprocedural examination (principal); D12.6 Benign neoplasm of colon, unspecified
CPT/HCPCS: 36415; 80053; 85025

== ENCOUNTER 2023-11-11 08:33 | Outpatient (AMB) | payer OTHER, SELFPAY ==
[2023-11-11 08:35] VITALS: BP 128/80; PULSE 90; O2SAT 98; BMI 31.6
--- NOTE | 2023-11-11 08:35 | A.OFFPC_ITS ---
Vital Signs 11/11/23 08:35 Height 5 ft 8 in Weight 208 lb BMI 31.6 BP 128/80 Blood Pressure Location Lt brachial Position Sitting Pulse 90 Pulse Source Pulse Oximeter Pulse Oximetry (%) 98 Oxygen Delivery Method Room Air Intake Visit Reasons: Annual PE Intake Note: Pt is here today for PE. Allergies escitalopram [From Lexapro] Allergy (Unknown, Verified 11/11/23 08:37) Palpitations Medication List - Last Reconciled 11/11/23 by Beba Crook MD bisacodyl (Dulcolax (bisacodyl)) 10 mg (2 x 5 mg) PO BEDTIME 2 days buspirone 5 mg PO BID PRN [CPAP machine start off on auto pap mode; pressure setting 6-16cm of H2O ] [CPAP mask As directed] [CPAP tubing As directed] ibuprofen 600 mg PO Q6H PRN levothyroxine 150 mcg PO QAM lidocaine 5% 1 patch topical DAILY sennosides (senna) 17.2 mg (2 x 8.6 mg) PO BEDTIME PRN 30 days simethicone 180 mg PO TID sodium,potassium,mag sulfates 17.5-3.13-1.6 gram (Suprep Bowel Prep Kit) 480 mL orally; FOR COLONOSCOPY PREP trazodone 50 mg PO BEDTIME PRN 30 days Tobacco use date assessed: 11/11/23 Dental Screening Dental Screen Date: 11/11/23 Did you have a dental visit in the last 12 months?: Yes Did you have a dental problem in the last 6 months where you did not have access to dental care?: No Was dental information given to patient?: Patient has dentist HPI Annual PE HPI Details Pt presents for PE. PFSH Medical History Annual physical exam GRAEME on CPAP Well woman exam Arthritis Pneumonia Chronic hypercapnic respiratory failure Insomnia Hypothyroid History of COVID-19 Hip pain GRAEME (obstructive sleep apnea) Depression Anxiety GERD (gastroesophageal reflux disease) RLS (restless legs syndrome) History of ectopic Surgical History Hx of hysterectomy Hx of colonoscopy History of esophagogastroduodenoscopy (EGD) History of right oophorectomy History of bilateral salpingectomy History of reversal of tubal ligation History of tubal ligation History of endometrial ablation History of bilateral breast reduction surgery Family History Father Colon cancer Mother CVD (cardiovascular disease) Rheumatoid arthritis Thyroid condition Maternal Grandfather No problems noted. Maternal Grandmother HTN (hypertension) Diabetes mellitus CVD (cardiovascular disease) Alzheimers disease Thyroid condition Paternal Grandmother No problems noted. Paternal Grandfather No problems noted. Maternal Aunt Ovarian cancer Breast cancer Thyroid condition Maternal Uncle Diabetes mellitus Son No problems noted. Son No problems noted. Son No problems noted. Sister No problems noted. Sister No problems noted. Brother No problems noted. Brother No problems noted. Brother No problems noted. Brother No problems noted. Social History Housing: Apartment Are you a primary manager urgent care to a significant other at home: No Do you presently have visiting nurse or other home services: No Alcohol intake: never Patient Tobacco Use Status: Never used Tobacco e-Cigarette/Vaping Use: Never Used service: No Current occupational status: employed Sexual orientation: Straight/Heterosexual Gender identity: Female Cognitive needs: No Hearing needs: No Vision needs: Yes (reading glasses) Female Reproductive History Menstrual Age of Menarche: 15 Questionnaire PHQ-9 Over the last 2 weeks, how often have you been bothered by any of the following problems? 1. Little interest or pleasure in doing things: not at all 2. Feeling down, depressed, or hopeless: not at all 3. Trouble falling or staying asleep, or sleeping too much: not at all 4. Feeling tired or having little energy: not at all 5. Poor appetite or overeating: not at all 6. Feeling bad about yourself - or that you are a failure or have let yourself or your family down: not at all 7. Trouble concentrating on things, such as reading the newspaper or watching television: not at all 8. Moving or speaking so slowly that other people could have noticed. Or the opposite - being so fidgety or restless that you have been moving around a lot more than usual: not at all 9. Thoughts that you would be better off or of hurting yourself in some way: not at all Total score: 0 Depression Screening Interpretation: Negative Depression Screening Done: Yes Source: Developed by Drs. Tavo Ricks, Alvaro Cancino and colleagues, with an educational aleksandra from [employer]. Thrive Questionnaire Date Thrive assessed: 11/11/23 I am a: Patient What is your living situation today?: I have a steady place to live Within the past 12 months, did the food you bought not last and you didn't have the money to get more?: Never true Within the past 12 months, did you worry whether your food would run out before you got money to buy more?: Never true Do you have trouble paying for medicines?: No Do you have trouble getting transportation to medical appointments?: No Do you have trouble paying your heating and electricity bill?: No Do you have trouble taking care of your child, family member or friend?: No Do you have trouble with day-to-day activities such as bathing, preparing meals, shopping, managing finances, etc.?: No Are you currently unemployed and looking for a job?: No Are you interested in more education?: No Please select the resources that you would like help with: Housing/Prison Currently or been in a relationship where the following occur: No concerns reported THRIVE Score: 0 AUDIT C Alcohol Use Questionnaire (AUDIT-C) 1. How often do you have a drink containing alcohol?: Never 3. How often do you have six or more drinks on one occasion?: Never Total Score: 0 JAYA-7 AMB Questionnaire JAYA-7 Date JAYA - 7 assessed: 11/11/23 Feeling nervous, anxious, or on edge: 0 = Not at all Not being able to stop or control worryin = Not at all Worrying too much about different things: 0 = Not at all Trouble relaxin = Not at all Being so restless that it is hard to sit still: 0 = Not at all Becoming easily annoyed or irritable: 0 = Not at all Feeling afraid as if something awful might happen: 0 = Not at all Total JAYA-7 score (0-4 normal; 5-9 mild; 10-14 moderate; 15-21 severe): 0 Source: Developed by Heather Fulton Kurt Kroenke and colleagues, with an educational aleksandra from [employer]. Review of Systems Const All systems reviewed & are unremarkable except as noted in HPI and below Eyes Reports no additional complaints ENT Reports no additional complaints Card Reports no additional complaints Resp Reports no additional complaints GI Reports no additional complaints Reports no additional complaints Physical exam (Primary Care) Vital Signs: Last Vital Signs Pulse 90 11/11/23 08:35 BP 128/80 11/11/23 08:35 Pulse Ox 98 11/11/23 08:35 Oxygen Delivery Method Room Air 11/11/23 08:35 BMI result Body Mass Index 31.6 Tobacco/Smoking Status: Tobacco use Status Tobacco use date assessed 11/11/23 11/11/23 08:40 Patient Tobacco Use Status Never used Tobacco 11/11/23 08:40 e-Cigarette/Vaping Use Never Used 11/11/23 08:40 PHQ-9: PHQ-9 Score PHQ-9: Total score 0 11/11/23 08:40 Depression Screening Interpretation: Negative Thrive Assessment: Date of Thrive Assessment Date Thrive assessed 11/11/23 11/11/23 08:40 Currently or been in a relationship where the following occur: No concerns reported Const General: no acute distress HENMT Head: Yes normal to inspection Ears: hearing grossly normal bilaterally General nose exam: Normal external nose present Face and sinus: Yes normal facial exam Mouth: Normal oral and palatal mucosa present Throat: Yes posterior oropharynx normal Eyes General: appearance normal, both eyes and all related structures Neck Neck: Yes supple Resp Effort & Inspection: normal respiratory effort Auscultation: clear to auscultation bilaterally Cardio Rhythm: regular rhythm Heart sounds: S1 normal heart sound present and S2 normal heart sound present GI Inspection: Yes normal to inspection Palpation (GI): Soft to palpation Percussion: Yes normal to percussion Auscultation: normal bowel sounds Assessment and Plan Assessment & Plan (1) Chronic hypercapnic respiratory failure: Comment: on Cpap f/u Dr. Gonsalez Code(s): J96.12 - Chronic respiratory failure with hypercapnia Plan: cont Cpap (2) Hypothyroidism: Code(s): E03.9 - Hypothyroidism, unspecified Plan: cont Levothyroxine, check TSH (3) Hypertriglyceridemia: Code(s): E78.1 - Pure hyperglyceridemia Plan: PATIENT WAS ADVISED TO START TAKING FISH OIL 2 CAPSULES A DAY, well-balanced diet increase [place] 3 fat in the diet (4) Annual physical exam: Comment: s/p [facility] Code(s): Z00.00 - Encounter for general adult medical examination without abnormal findings Plan: Well-balanced diet regular physical activity discussed with the patient she is up-to-date with the mammogram and will have a colonoscopy Orders: Orders Lipid Panel Today E03.9 - Hypothyroidism, unspecified, E78.1 - Pure hyperglyceridemia, J96.12 - Chronic respiratory failure with hypercapnia, Z00.00 - Encounter for general adult medical examination without abnormal findings Comprehensive [place]. Panel Fast Today E03.9 - Hypothyroidism, unspecified, E78.1 - Pure hyperglyceridemia, J96.12 - Chronic respiratory failure with hypercapnia, Z00.00 - Encounter for general adult medical examination without abnormal findings UA w Microscopic Today E03.9 - Hypothyroidism, unspecified, E78.1 - Pure hyperglyceridemia, J96.12 - Chronic respiratory failure with hypercapnia, Z00.00 - Encounter for general adult medical examination without abnormal findings Complete Blood Count Auto Diff Today E03.9 - Hypothyroidism, unspecified, E78.1 - Pure hyperglyceridemia, J96.12 - Chronic respiratory failure with hypercapnia, Z00.00 - Encounter for general adult medical examination without abnormal findings TSH reflex Free T4 Today E03.9 - Hypothyroidism, unspecified, E78.1 - Pure hyperglyceridemia, J96.12 - Chronic respiratory failure with hypercapnia, Z00.00 - Encounter for general adult medical examination without abnormal findings Coding Level of Care Code Est Pt Prev Care 40-64y(22716) Diagnoses Chronic hypercapnic respiratory failure J96.12 Hypothyroidism E03.9 Hypertriglyceridemia E78.1 Annual physical exam Z00.00
== END 2023-11-11 09:03 | disposition home or self-care (01) ==
PROVIDERS: PCP Internal Medicine; Visit Provider Internal Medicine
DX: J96.12 Chronic respiratory failure with hypercapnia (principal); E03.9 Hypothyroidism, unspecified; E78.1 Pure hyperglyceridemia; Z00.00 Encounter for general adult medical examination without abnormal findings
CPT/HCPCS: 99396

== ENCOUNTER 2023-11-11 09:04 | Outpatient (REF) | payer OTHER, SELFPAY ==
[2023-11-11 13:05] LABS: MANUAL DIFF FLAG NO
[2023-11-11 13:08] LABS: Appearance Urine Clear; Color Urine Yellow; Glucose Urine UA Negative (Negative); Leukocyte Esterase Urine Negative (Negative); Nitrite Urine Negative (Negative); PH 5.5 (5.0-9.0); Specific Gravity - Urine 1.015 (1.005-1.025); UMIC TRIGGER UA YES; Urine Blood Moderate (2+) (Negative); Urine Ketones Negative (Negative); Urine Protein Negative (Neg-Trace)
[2023-11-11 13:10] LABS: Basophils Percent Auto 0.2 % (0-2); Eosinophils Absolute Auto 0.2 X10*3/uL (0.0-0.4); Eosinophils Percent Auto 4.1 % (0-4); Hematocrit 39.5 % (37.0-47.0); Hemoglobin 13.5 g/dl (12.0-16.0); Imm Gran Abs Auto 0.01 X10*3/uL (0.00-0.03); Imm Gran Pct Auto 0.2 % (0.0-0.4); Lymphocytes Absolute Auto 1.9 X10*3/uL (1.2-4.9); Lymphocytes Percent Auto 44.2 % (20-40); Mean Corpuscular HGB Conc 34.2 g/dl (31.0-35.0); Mean Corpuscular Volume 84.8 fL (80.0-98.0); Mean Platelet Volume 10.1 fL (9.4-12.3); Monocytes Absolute Auto 0.3 X10*3/uL (0.1-1.2); Monocytes Percent Auto 6.8 % (2-11); Neutrophils Percent Auto 44.5 % (45-73); Platelet Count 257 X10*3/uL (160-400); Red Blood Count 4.66 X10*6/uL (4.20-5.50); Red Cell Distribution Width 12.3 % (11.0-16.0); White Blood Count 4.4 X10*3/uL (4.8-10.8)
[2023-11-11 13:16] LABS: Bacteria Urine None Seen (None Seen); Hyaline Casts Urine 0-2 /LPF (0-2); WBC Urine 0-5 /HPF (0-5)
[2023-11-11 13:45] LABS: Alanine Aminotransferase 12 U/L (0-31); Albumin Level 4.2 g/dL (3.5-5.0); Alkaline Phosphatase 101 U/L (39-117); Anion Gap 14 (12-20); Aspartate Amino Transferase 15 U/L (5-31); Bilirubin Total 0.4 mg/dL (0.0-1.0); Blood Urea Nitrogen 15 mg/dL (9-16); Calcium 9.8 mg/dL (8.4-10.2); Carbon Dioxide 25 mmol/L (22-29); Chloride 107 mmol/L (96-108); Cholesterol 186 mg/dL (<200); Estimated Glomerular Filt Rate > 60; Glucose Fasting 90 mg/dL (60-99); HDL Cholesterol 36 mg/dL (>40); LDL Cholesterol Calculated 104 mg/dL (<100); Potassium 4.1 mmol/L (3.3-5.1); Sodium 142 mmol/L (135-145); Total Protein 7.4 g/dL (6.5-8.0); Triglycerides 233 mg/dL (<150)
[2023-11-11 13:49] LABS: TSH reflex Free T4 0.33 uIU/mL (0.32-4.0)
== END 2023-11-11 09:05 | disposition home or self-care (01) ==
LOC: HO.HMGCLDS 09:04
PROVIDERS: PCP Internal Medicine; Visit Provider Internal Medicine
DX: Z00.00 Encounter for general adult medical examination without abnormal findings (principal); E78.1 Pure hyperglyceridemia; E03.9 Hypothyroidism, unspecified; J96.12 Chronic respiratory failure with hypercapnia
CPT/HCPCS: 36415; 80053; 80061; 81001; 84443; 85025

== ENCOUNTER 2023-12-06 15:03 | Outpatient (AMB) | payer OTHER, SELFPAY ==
[2023-12-06 15:04] VITALS: BMI 31.5
--- NOTE | 2023-12-06 15:04 | MHC.OFFVIS ---
Vital Signs 12/06/23 15:04 12/06/23 15:18 Height 5 ft 8 in 5 ft 8 in Weight 207 lb 3.752 oz 170 lb BMI 31.5 25.8 BP 110/66 Blood Pressure Location Lt brachial Intake Visit Reasons: annual/DO NOT RS, Women's annual routine gynecological examination Machine Engraver Required: No Allergies escitalopram [From Lexapro] Allergy (Unknown, Verified 12/06/23 15:21) Palpitations Medication List - Last Reconciled 12/06/23 by Chica Payne LPN [CPAP machine start off on auto pap mode; pressure setting 6-16cm of H2O ] [CPAP mask As directed] [CPAP tubing As directed] ibuprofen 600 mg PO Q6H PRN levothyroxine 150 mcg PO QAM lidocaine 5% 1 patch topical DAILY sennosides (senna) 17.2 mg (2 x 8.6 mg) PO BEDTIME PRN 30 days simethicone 180 mg PO TID sodium,potassium,mag sulfates 17.5-3.13-1.6 gram (Suprep Bowel Prep Kit) 480 mL orally; FOR COLONOSCOPY PREP trazodone 50 mg PO BEDTIME PRN 30 days Is last menstrual period known: No Post menopausal: Yes Patient : No Do you need a note to return to daycare/school/sports/work: No HPI Comments Details: Presenting for annual exam. No complaints. Last Pap/HPV was negative in 06/16 Last Mammogram was BI-RADS 2 in 04/16 Last Colonoscopy was in 08/14, the recommendation was to repeat in 3 years, the patient has an appointment coming up soon for colonoscopy [facility] Medical History (Updated 12/06/23 @ 15:33 by Fran Velarde MD) Well woman exam Annual physical exam GRAEME on CPAP Arthritis Pneumonia Chronic hypercapnic respiratory failure Insomnia Hypothyroid History of COVID-19 Hip pain GRAEME (obstructive sleep apnea) Depression Anxiety GERD (gastroesophageal reflux disease) RLS (restless legs syndrome) History of ectopic Surgical History Hx of hysterectomy Hx of colonoscopy History of esophagogastroduodenoscopy (EGD) History of right oophorectomy History of bilateral salpingectomy History of reversal of tubal ligation History of tubal ligation History of endometrial ablation History of bilateral breast reduction surgery Family History Father Colon cancer Mother CVD (cardiovascular disease) Rheumatoid arthritis Thyroid condition Maternal Grandfather No problems noted. Maternal Grandmother HTN (hypertension) Diabetes mellitus CVD (cardiovascular disease) Alzheimers disease Thyroid condition Paternal Grandmother No problems noted. Paternal Grandfather No problems noted. Maternal Aunt Ovarian cancer Breast cancer Thyroid condition Maternal Uncle Diabetes mellitus Son No problems noted. Son No problems noted. Son No problems noted. Sister No problems noted. Sister No problems noted. Brother No problems noted. Brother No problems noted. Brother No problems noted. Brother No problems noted. Social History Housing: Apartment Are you a primary assisted living care manager to a significant other at home: No Do you presently have visiting nurse or other home services: No Alcohol intake: never Patient Tobacco Use Status: Never used Tobacco e-Cigarette/Vaping Use: Never Used Patient : No service: No Current occupational status: employed Sexual orientation: Straight/Heterosexual Gender identity: Female Cognitive needs: No Hearing needs: No Vision needs: Yes (reading glasses) Female Reproductive History Menstrual Age of Menarche: 15 Review of Systems Const All systems reviewed & are unremarkable except as noted in HPI and below Card Reports as per HPI Resp Reports as per HPI GI Reports as per HPI and Reports no additional complaints Reports as per HPI Physical Exam Vital Signs: Last Vital Signs BP 110/66 12/06/23 15:18 BMI result Body Mass Index 25.8 Const General: cooperative, healthy appearing and comfortable Chest Chest palpation & inspection: normal inspection of the chest and normal palpation of entire chest wall Breast/axilla inspection: normal inspection of the breasts and normal inspection of the axillae Breast/axilla palpation: normal palpation of the breasts, normal palpation of the axillae and no axillary lymphadenopathy Resp Effort & Inspection: normal respiratory effort Auscultation: clear to auscultation bilaterally Percussion: percussion normal Cardio Palpation: normal PMI Rate: regular rate Rhythm: regular rhythm Heart sounds: no murmurs and no rubs Peripheral pulses: Peripheral pulses 2+ throughout GI Inspection: Yes normal to inspection Palpation (GI): Soft to palpation, nontender, no guarding, not rigid and No hepatosplenomegaly present Percussion: Yes normal to percussion Auscultation: normal bowel sounds Rectal Exam - Female: deferred General: Yes bladder normal to palpation External Female Exam: No lesion Speculum Exam - Vagina: normal appearance of the vagina, normal vaginal discharge and not erythematous Bimanual exam- vagina & uterus: bladder normal to palpation Bimanual Exam- Adnexa, other: tender and Other (No masses) Assessment & Plan Assessment & Plan (1) Well woman exam: Code(s): Z01.419 - Encounter for gynecological examination (general) (routine) without abnormal findings Category: Medical Plan: Co testing not indicated since the patient is status post hysterectomy with no history of high-grade dysplasia Counseled the patient about the recommended dietary allowance of 1200 mg of Calcium & 600 IU of vitamin D. Mammogram ordered. The patient has an appointment soon for screening colonoscopy . The patient was instructed to perform monthly self-breast exams and schedule annual exam in a year. All questions answered and the patient verbalized understanding. Orders: Orders MM tomosynthesis screening BI Today Z12.31 - Encounter for screening mammogram for malignant neoplasm of breast Referrals Gastroenterology Referral Z12.11 - Encounter for screening for malignant neoplasm of colon Coding Level of Care Code Est Pt Prev Care 40-64y([id number]) Diagnoses Well woman exam Z01.419
[2023-12-06 15:18] VITALS: BP 110/66; BMI 25.8
== END 2023-12-06 15:43 | disposition home or self-care (01) ==
PROVIDERS: PCP Internal Medicine; Visit Provider Obstetrics & Gynecology
DX: Z01.419 Encounter for gynecological examination (general) (routine) without abnormal findings (principal)
CPT/HCPCS: 99396

== ENCOUNTER → 2023-12-06 15:03 | Outpatient (BNVA) | payer OTHER, SELFPAY | PROVIDERS: PCP Internal Medicine; Visit Provider Obstetrics & Gynecology ==

== ENCOUNTER 2023-12-15 15:48 | Outpatient (REF) | payer OTHER, SELFPAY ==
--- NOTE | ~2023-12-15 | MM_ITS ---
EXAMINATION: MM SCREENING DIGITAL BREAST TOMOSYNTHESIS, BILATERAL CLINICAL INFORMATION: Screening. Asymptomatic. COMPARISON: Mammography: Comparison is made with prior exams. TECHNIQUE: Digital breast tomosynthesis is performed in both the craniocaudal and mediolateral oblique views along with computer-aided detection (CAD). Synthesized 2D images are generated from the tomosynthesis. FINDINGS: There are scattered areas of fibroglandular density (ACR BI-RADS breast composition Category b). Bilateral reduction mammoplasty. There are no significant masses, abnormal calcifications, or other abnormalities. MM/MM tomosynthesis screening BI IMPRESSION: No mammographic evidence of malignancy. ASSESSMENT: BI-RADS BI-RADS 2 - Benign Findings RECOMMENDATION: Routine annual mammography screening. 1 year F/U This examination should not preclude the clinical evaluation of a suspicious palpable abnormality. This patient's information was entered into a reminder system with a target due date for their next mammogram. Electronically signed by: Deisy Aponte DO 01/12/2024 09:48 PM EDT
== END 2023-12-15 15:49 | disposition home or self-care (01) ==
LOC: HO.MAMMO 15:48
PROVIDERS: PCP Internal Medicine; Visit Provider Obstetrics & Gynecology
DX: Z12.31 Encounter for screening mammogram for malignant neoplasm of breast (principal)
CPT/HCPCS: 77063; 77067

== ENCOUNTER → 2023-12-15 16:00 | Outpatient (BNV) | payer OTHER, SELFPAY | PROVIDERS: PCP Internal Medicine; Visit Provider Internal Medicine | DX: Z12.31 Encounter for screening mammogram for malignant neoplasm of breast (principal) | CPT/HCPCS: 77063; 77067 ==

== ENCOUNTER 2024-03-22 10:25 | Day surgery (SDC) | payer OTHER, SELFPAY ==
[2024-03-20 13:50] VITALS: BMI 32.2
--- NOTE | 2024-03-21 12:13 | P.CONAN_ITS ---
Documented by User: Amelia Marcus NP 03/21/24 12:14 HPI - Anesthesia Eval Consult details Narrative: 53yo F for Colonoscopy PMF Active Problems Active Problems: All Active Problems Pre-op examination (Acute) Lumbar radiculopathy (Acute) Uterine myoma (Acute) Abnormal uterine bleeding (AUB) (Acute) Enlarged uterus (Acute) Loose stools (Acute) Abdominal bloating (Acute) Abdominal cramping (Acute) Constipation (Acute) Tubulovillous adenoma of large intestine (Acute) Rectal spasm (Acute) GRAEME (obstructive sleep apnea) (Acute) Hypertriglyceridemia (Acute) Hypothyroidism (Acute) Well woman exam (Acute) Annual physical exam (Acute) Chronic hypercapnic respiratory failure (Acute) Insomnia (Acute) GERD (gastroesophageal reflux disease) (Acute) Hip pain (Acute) Past Medical History Medical History GRAEME on CPAP Chronic hypercapnic respiratory failure Insomnia Well woman exam Hypothyroid Hip pain Arthritis Annual physical exam Depression Anxiety GERD (gastroesophageal reflux disease) RLS (restless legs syndrome) History of ectopic Pneumonia Family History Family History Father Colon cancer Mother CVD (cardiovascular disease) Rheumatoid arthritis Thyroid condition Maternal Grandfather No problems noted. Maternal Grandmother HTN (hypertension) Diabetes mellitus CVD (cardiovascular disease) Alzheimers disease Thyroid condition Paternal Grandmother No problems noted. Paternal Grandfather No problems noted. Maternal Aunt Ovarian cancer Breast cancer Thyroid condition Maternal Uncle Diabetes mellitus Son No problems noted. Son No problems noted. Son No problems noted. Sister No problems noted. Sister No problems noted. Brother No problems noted. Brother No problems noted. Brother No problems noted. Brother No problems noted. Family history of problems with anesthesia: No Surgical History Surgical History Hx of hysterectomy Hx of colonoscopy History of esophagogastroduodenoscopy (EGD) History of right oophorectomy History of bilateral salpingectomy History of reversal of tubal ligation History of tubal ligation History of endometrial ablation History of bilateral breast reduction surgery History of Problems with Anesthesia: Yes (Uncontollable tremors after one of her surgeries. Was treated with benadryl.) 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 a primary customer care voice consultant to a significant other at home: No Do you presently have visiting nurse or other home services: No Alcohol intake: never Patient Tobacco Use Status: Never used Tobacco e-Cigarette/Vaping Use: Never Used Use of substances other than those prescribed or required for medical reasons: No Are you DNR?: No Advance Directives: No Advance Directives Information Provided: Yes Recently lost weight without trying: No service: No Current occupational status: employed Sexual orientation: Straight/Heterosexual Gender identity: Female Cognitive needs: No Hearing needs: No Vision needs: Yes (reading glasses) Meds Allergies Allergy/AdvReac Type Severity Reaction Status Date / Time escitalopram [From Lexapro] Allergy Unknown Palpitation Verified 03/22/24 10:35 s Home Medications ?Medication ?Instructions ?Recorded ?Confirmed ?Last Taken ?Type simethicone 180 mg capsule 180 mg PO TID 11/18/22 03/22/24 Unknown History Exam Height,Weight and Vital Signs: Height 5 ft 8 in Weight 96.162 kg Assessment and Plan Assessment Anesthesia Assessment: Chart Reviewed Final Anesthetic Review Family History of Problems with Anesthesia: No History of Problems with Anesthesia: Yes (Uncontollable tremors after one of her surgeries. Was treated with benadryl.) Documented by User: Nohemi Dacosta MD 03/22/24 11:15 [facility], [facility] Past Medical History Medical History GRAEME on CPAP Chronic hypercapnic respiratory failure Insomnia Well woman exam Hypothyroid Hip pain Arthritis Annual physical exam Depression Anxiety GERD (gastroesophageal reflux disease) RLS (restless legs syndrome) History of ectopic Pneumonia Family History Family History Father Colon cancer Mother CVD (cardiovascular disease) Rheumatoid arthritis Thyroid condition Maternal Grandfather No problems noted. Maternal Grandmother HTN (hypertension) Diabetes mellitus CVD (cardiovascular disease) Alzheimers disease Thyroid condition Paternal Grandmother No problems noted. Paternal Grandfather No problems noted. Maternal Aunt Ovarian cancer Breast cancer Thyroid condition Maternal Uncle Diabetes mellitus Son No problems noted. Son No problems noted. Son No problems noted. Sister No problems noted. Sister No problems noted. Brother No problems noted. Brother No problems noted. Brother No problems noted. Brother No problems noted. Surgical History Surgical History Hx of hysterectomy Hx of colonoscopy History of esophagogastroduodenoscopy (EGD) History of right oophorectomy History of bilateral salpingectomy History of reversal of tubal ligation History of tubal ligation History of endometrial ablation History of bilateral breast reduction surgery 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 a primary customer care voice consultant to a significant other at home: No Do you presently have visiting nurse or other home services: No Alcohol intake: never Patient Tobacco Use Status: Never used Tobacco e-Cigarette/Vaping Use: Never Used Use of substances other than those prescribed or required for medical reasons: No Are you DNR?: No Advance Directives: No Advance Directives Information Provided: Yes Recently lost weight without trying: No service: No Current occupational status: employed Sexual orientation: Straight/Heterosexual Gender identity: Female Cognitive needs: No Hearing needs: No Vision needs: Yes (reading glasses) Meds Allergies Allergy/AdvReac Type Severity Reaction Status Date / Time escitalopram [From Lexapro] Allergy Unknown Palpitation Verified 03/22/24 10:35 s Home Medications ?Medication ?Instructions ?Recorded ?Confirmed ?Last Taken ?Type simethicone 180 mg capsule 180 mg PO TID 11/18/22 03/22/24 Unknown History Exam Airway Mallampati Class: II TM Dist: >3cm Neck ROM: Full Heart: rrr Lungs: cta Assessment and Plan Assessment Anesthesia Assessment: Anesthesia Plan Discussed Final Anesthetic Review NPO: Yes ASA Class: II Final Preanesthetic Review: No Changes in Pt Med Stat, Meds/Allgs Chart Reviewed, Consent Obtained/Reviewed and Anes Risks/Benef Reviewed Patient Risk: Low Procedure Risk: Low Anesthetic Plan Anesthetic Plan: MAC: Disposition: Standard PACU
[2024-03-22 10:38] VITALS: BMI 31.9
[2024-03-22 10:51] VITALS: BP 133/78; PULSE 91; RESP 15; TEMP 36.5; O2SAT 97
[2024-03-22] MEDS: Lactated Ringers 1,000 ML 100 ML IVCONT (10:53)
--- NOTE | 2024-03-22 11:13 | MHC.SHP ---
Pre-Procedural Eval Section A - 24 Hr Update-Section A only Date of Service: 03/22/24 Section B - Complete if H&P > 30 days Chief Complaint: Benign neoplasm of colon, unspecified Relevant Family History (Specify if Yes): Yes Relevant Social History: None Present Medications: see Short Stay Collaborative assessment Medical History: Significant History (GRAEME on CPAP Chronic hypercapnic respiratory failure Insomnia Well woman exam Hypothyroid Hip pain Arthritis Annual physical exam Depression Anxiety GERD (gastroesophageal reflux disease) RLS (restless legs syndrome) History of ectopic Pneumonia) History of Previous Operations: Relevant previous surgery/procedure and date(s) ( Hx of hysterectomy Hx of colonoscopy History of esophagogastroduodenoscopy (EGD) History of right oophorectomy History of bilateral salpingectomy History of reversal of tubal ligation History of tubal ligation History of endometrial ablation History of bilateral breast reduction surgery) Allergies: Allergies Allergy/AdvReac Type Severity Reaction Status Date / Time escitalopram [From Lexapro] Allergy Unknown Palpitation Verified 03/22/24 10:35 s Review of Systems Sugical H&P ROS: Negative: Constitution, Cardiovascular, Respiratory, Neurological, Psychiatric, Hem-Onc, Allergic/Immunologic, Gastrointestinal, Genitourinary, Musculoskeletal, Integumentary, Endocrine and Eyes/Ears/Nose/Throat Exam Surgical H&P Exam: Normal: HEENT, Normal: Heart, Normal: Lungs, Normal: Extremities, Normal: Abdomen, Normal: Skin and Normal: Neurological Plan Diagnosis/Plan: Unchanged I have reviewed the history and physical and performed a pertinent physical examination on my patient. No changes have occurred unless specified. Time Spent With Patient Time: Total time managing care of this patient today ____ minutes.
--- NOTE | 2024-03-22 11:50 | HO.OPN-COLON ---
Colonoscopy Operative Note Operative Note Date of Service: 03/22/24 Narrative: Operative Information Procedure Description: Colonoscopy Indication: screening Anesthesia: MAC COLONOSCOPY Instrument: Olympus variable stiffness pediatric scope 190L Colonoscopy Monitoring: Vital signs and clinical assessment, continuous EKG monitoring, Pulse oximetry, Carbon Dioxide monitoring and blood pressure monitoring were done throughout the procedure. Colon withdrawal time was 13 minutes. Procedure: The patient was placed in the left lateral decubitis position and pre-procedure medications were administered. After a digital rectal examination of the ano-rectum, the video colonoscope was inserted into the rectum and advanced through the colon to the cecum/TI. The colonoscope was slowly withdrawn in a retrograde panoramic fashion and the colon mucosa was carefully examined including a retroflexed view of the rectum. Findings and interventions are described below. Procedure Difficulty: easy Findings: Terminal Ileum-normal Cecum:normal Ascending Colon: normal Transverse Colon - 8-9 mm sessile polyp removed with cold snare Descending Colon:normal Sigmoid Colon: x 1 sessile polyp 5-7 mm removed with cold forceps Rectum: Retroflexion with small internal hemorrhoids seen, grade I, x1 sessile polyp 5-6 mm removed with cold forceps Anorectum - normal Intervention: cold forceps, cold snare Colon preparation: [place] Bowel Preparation Scale Right colon; 2 Transverse colon: 2 Left colon; 2 (0 = Unprepared colon segment with mucosa not seen due to solid stool that cannot be cleared. 1 = Portion of mucosa of the colon segment seen, but other areas of the colon segment not well seen due to staining, residual stool and/or opaque liquid. 2 = Minor amount of residual staining, small fragments of stool and/or opaque liquid, but mucosa of colon segment seen well. 3 = Entire mucosa of colon segment seen well with no residual staining, small fragments of stool or opaque liquid) Impression and Post Procedure Diagnosis: colon polyps internal hemorrhoids Plan: High fiber diet leaflet Avoid straining at stool, epsom salts and sitz bath, anusol supps or cream Repeat Colonoscopy in 3-4 years due to prior hx of polyps or earlier if clinically indicated Above findings were reviewed with the patient and relevant handouts were provided if indicated.
[2024-03-22 11:58] VITALS: BP 123/71; PULSE 85; RESP 16; TEMP 36.8; O2SAT 98
[2024-03-22 12:13] VITALS: BP 131/80; PULSE 81; RESP 16; TEMP 36.6; O2SAT 95
== END 2024-03-22 12:45 | disposition home or self-care (01) ==
PROVIDERS: PCP Internal Medicine; Visit Provider Internal Medicine Gastroenterology
PROC: 0DJD8ZZ Inspection of Lower Intestinal Tract, Via Natural or Artificial Opening Endoscopic (ICD-10-PCS; CPT 45378; principal; 2024-03-22 12:30)
DX: Z12.11 Encounter for screening for malignant neoplasm of colon (principal); D12.3 Benign neoplasm of transverse colon; D12.5 Benign neoplasm of sigmoid colon; K62.1 Rectal polyp; K64.0 First degree hemorrhoids; Z86.0101 Personal history of adenomatous and serrated colon polyps; Z80.0 Family history of malignant neoplasm of digestive organs; J96.12 Chronic respiratory failure with hypercapnia; E03.9 Hypothyroidism, unspecified; K21.9 Gastro-esophageal reflux disease without esophagitis; G47.33 Obstructive sleep apnea (adult) (pediatric); Z99.89 Dependence on other enabling machines and devices
CPT/HCPCS: 45385; 45380; 88305; J2003; J2704

== ENCOUNTER → 2024-03-22 10:25 | Outpatient (BNV) | payer OTHER, SELFPAY | PROVIDERS: PCP Internal Medicine; Visit Provider Internal Medicine Gastroenterology | DX: Z12.11 Encounter for screening for malignant neoplasm of colon (principal); D12.5 Benign neoplasm of sigmoid colon; D12.3 Benign neoplasm of transverse colon; K62.1 Rectal polyp; K64.0 First degree hemorrhoids | CPT/HCPCS: 45380; 45385 ==

== ENCOUNTER 2024-08-25 14:57 | Outpatient (AMB) | payer OTHER, SELFPAY ==
--- NOTE | 2024-08-25 14:58 | MHC.OFFVIS ---
Vital Signs 08/25/24 14:59 Height 5 ft 8 in Weight 217 lb 13.067 oz BMI 33.1 BP 110/74 Blood Pressure Location Lt brachial Position Sitting Pulse 88 Pulse Source Pulse Oximeter Pulse Oximetry (%) 97 Oxygen Delivery Method Room Air Intake Visit Reasons: s/p Intake Note: Patient follow up for abdominal pain, lab abd Colonoscopy results. Allergies escitalopram [From Lexapro] Allergy (Unknown, Verified 08/25/24 15:05) Palpitations HPI HPI s/p: Details: Assessment & Plan (1) Tubulovillous adenoma of large intestine: Comment: 06/2020 colonoscopy with multiple TVA and TAs, repeat in 3 years or 2023 Code(s): D12.6 - Benign neoplasm of colon, unspecified Category: Medical (2) GRAEME (obstructive sleep apnea): Code(s): G47.33 - Obstructive sleep apnea (adult) (pediatric) Category: Medical (3) Chronic hypercapnic respiratory failure: Code(s): J96.12 - Chronic respiratory failure with hypercapnia Category: Medical (4) Pre-op examination: Code(s): Z01.818 - Encounter for other preprocedural examination Category: Medical Plan PATIENT HAS BEEN LOST TO FOLLOW-UP since 11/2021 and is referred today for a recall colonoscopy. He had multiple polyps in 2020 and a family history of colon cancer. She still struggles with IBS-M but has not found relief with any prior medications, we discuss the use of peppermint tea for rectal spasms - fortunately this has not been as often. She has an unspecified respiratory problem that she says is not asthma and her GRAEME is controlled. She had a recent Hyst and had trouble coming out of sedation, but not with prior colonoscopy sedation. No ID problems. She has a hx of multiple polyposis and TVA. We discuss possible creon for her bloating but she does not want to try that at this time. Orders: Orders Complete Blood Count Auto Diff Today D12.6 - Benign neoplasm of colon, unspecified, Z01.818 - Encounter for other preprocedural examination Colonoscopy - GI Use Only Today D12.6 - Benign neoplasm of colon, unspecified, Z01.818 - Encounter for other preprocedural examination Comprehensive Met. Panel Today D12.6 - Benign neoplasm of colon, unspecified, Z01.818 - Encounter for other preprocedural examination Medications: New sodium,potassium,mag sulfates 17.5-3.13-1.6 gram (Suprep Bowel Prep Kit) 480 mL orally; FOR COLONOSCOPY PREP 354 mL 0RF bisacodyl (Dulcolax (bisacodyl)) 10 mg (2 x 5 mg) PO BEDTIME 4 tabs 0RF 2 days Discontinued famotidine (Pepcid) Discontinued Reason: Doctor's Order 40 mg PO BEDTIME 30 days 30 tabs 6RF K21.9 - Gastro-esophageal reflux disease without esophagitis dicyclomine Discontinued Reason: Doctor's Order 20 mg (2 x 10 mg) PO TID 60 caps 3RF R10.9 - Unspecified abdominal pain LABS: Laboratory Tests 11/11/23 10:17 WBC 4.4 L Hgb 13.5 Hct 39.5 Plt Count 257 Estimated GFR > 60 Total Bilirubin 0.4 AST 15 ALT 12 Alkaline Phosphatase 101 TSH 0.33 COLONOSCOPY 03/22/24 Findings: Terminal Ileum-normal Cecum:normal Ascending Colon: normal Transverse Colon - 8-9 mm sessile polyp removed with cold snare Descending Colon:normal Sigmoid Colon: x 1 sessile polyp 5-7 mm removed with cold forceps Rectum: Retroflexion with small internal hemorrhoids seen, grade I, x1 sessile polyp 5-6 mm removed with cold forceps Anorectum - normal Intervention: cold forceps, cold snare Impression and Post Procedure Diagnosis: colon polyps internal hemorrhoids Plan: High fiber diet leaflet Avoid straining at stool, epsom salts and sitz bath, anusol supps or cream Repeat Colonoscopy in 3-4 years due to prior hx of polyps or earlier if clinically indicated BIOPSY Received: 03/22/24 Diagnosis A. Colon, sigmoid, polyp: Tubular adenoma; negative for high-grade dysplasia and carcinoma. B. Colon, transverse, polyp: Tubular adenoma, completely excised; negative for high-grade dysplasia and carcinoma. C. Colon, rectal polyp: Colonic mucosa with minimal hyperplastic changes; no adenomatous dysplasia TODAY'S VISIT She is agreeable to a 5 year recall. The procedure was well tolerated. The results were explained and the patient is agreeable to the follow-up interval as stated. The bowel pattern has returned to normal. Education was provided to tell any 1st degree relatives about their findings to be sure that they are screened by age 45. Educated that they will be put on a recall list when it is time for their repeat scope but should they move out of state or away from the hospital they will need to remember along with their primary to repeat the procedure in a timely fashion to avoid any adverse complications. COUNT INCLUDES THE [facility] Medical History GRAEME on CPAP Chronic hypercapnic respiratory failure Insomnia Well woman exam Hypothyroid Hip pain Arthritis Annual physical exam Depression Anxiety GERD (gastroesophageal reflux disease) RLS (restless legs syndrome) History of ectopic Pneumonia Surgical History Hx of hysterectomy Hx of colonoscopy History of esophagogastroduodenoscopy (EGD) History of right oophorectomy History of bilateral salpingectomy History of reversal of tubal ligation History of tubal ligation History of endometrial ablation History of bilateral breast reduction surgery Family History Father Colon cancer Mother CVD (cardiovascular disease) Rheumatoid arthritis Thyroid condition Maternal Grandfather No problems noted. Maternal Grandmother HTN (hypertension) Diabetes mellitus CVD (cardiovascular disease) Alzheimers disease Thyroid condition Paternal Grandmother No problems noted. Paternal Grandfather No problems noted. Maternal Aunt Ovarian cancer Breast cancer Thyroid condition Maternal Uncle Diabetes mellitus Son No problems noted. Son No problems noted. Son No problems noted. Sister No problems noted. Sister No problems noted. Brother No problems noted. Brother No problems noted. Brother No problems noted. Brother No problems noted. Social History Housing: Apartment Are you a primary child care attendant to a significant other at home: No Do you presently have visiting nurse or other home services: No Alcohol intake: never Patient Tobacco Use Status: Never used Tobacco e-Cigarette/Vaping Use: Never Used service: No Current occupational status: employed Sexual orientation: Straight/Heterosexual Gender identity: Female Cognitive needs: No Hearing needs: No Vision needs: Yes (reading glasses) Female Reproductive History Menstrual Age of Menarche: 15 Review of Systems Const Denies fatigue, Denies fever(s), Denies night sweats, Denies poor appetite and Denies weight loss ENT Reports Normal hearing present, Denies dental pain, Denies dysphagia, Denies hearing loss, Denies mouth pain, Denies odynophagia, Denies throat swelling, Denies tongue swelling and Reports other (Dentition adequate) Card Reports no additional complaints Resp Reports no additional complaints GI Details: Denies abdominal pain, Denies melena, Denies bloating, Denies hematochezia, Denies constipation, Denies GI cramping, Denies dysphagia, Denies excessive flatus, Denies early satiety, Denies heartburn, Denies diarrhea, Denies nausea, Denies odynophagia, Denies vomiting and Denies hematemesis Skin/Breast Denies pruritus, Denies lesions, Denies rash and Denies jaundice Neuro Reports Normal hearing present and Denies Abnormal speech present Endo Denies fatigue Aller/Immun Denies throat swelling and Denies tongue swelling Physical Exam Vital Signs: Last Vital Signs Pulse 88 08/25/24 14:59 BP 110/74 08/25/24 14:59 Pulse Ox 97 08/25/24 14:59 Oxygen Delivery Method Room Air 08/25/24 14:59 BMI result Body Mass Index 33.1 Const General: cooperative, no acute distress, well developed and well groomed Nutritional Appearance: well nourished and obese Orientation/consciousness: oriented to person, oriented to place and oriented to time Limitations: No language barrier HEENT Head: Yes normocephalic and Yes atraumatic Eyes General: appearance normal, both eyes and all related structures Pupils: Equal, round and reactive pupils present Neck Neck: Yes normal visual inspection and Yes no lymphadenopathy Thyroid: Thyroid normal Resp Effort & Inspection: normal respiratory effort and able to speak in complete sentences Auscultation: clear to auscultation bilaterally Cardio Rate: regular rate Rhythm: regular rhythm Heart sounds: Normal, physiologic split S2 sound present Peripheral pulses: radial pulses present and posterior tibial pulses present GI Inspection: No distended, No Abdominal panniculus present and Yes obesity Palpation (GI): Soft to palpation, nontender, no guarding, not rigid and No hepatosplenomegaly present Percussion: Yes normal to percussion Auscultation: normal bowel sounds Rectal Exam - Female: deferred Skin General skin exam: no rashes or lesions noted, turgor normal, skin not dry, no jaundice, No spider nevi and no striae Rashes: no rashes Nails: normal Neuro General: oriented to person, oriented to place and oriented to time Cranial nerves: Yes Equal, round and reactive pupils present and Yes Normal hearing present Speech: No Abnormal speech present Extrem General: Yes normal to inspection, No clubbing, No cyanosis and No edema Psych Appearance: grossly normal and well kempt Mental Status: mental status grossly normal Speech and movement: Normal speech and movement present Affect: normal affect Attitude: cooperative Thought process: Normal thought process present and not confabulating Thought content: Normal thought content present Insight: Good insight present (Psych) Judgement: Good judgement present (Psych) Assessment & Plan Assessment & Plan (1) Tubulovillous adenoma of large intestine: Comment: 06/2020 colonoscopy with multiple TVA and TAs, repeat in 3 years or 2023 Code(s): D12.6 - Benign neoplasm of colon, unspecified Category: Medical Plan She is agreeable to a 5 year recall. The procedure was well tolerated. The results were explained and the patient is agreeable to the follow-up interval as stated. The bowel pattern has returned to normal. Education was provided to tell any 1st degree relatives about their findings to be sure that they are screened by age 45. Educated that they will be put on a recall list when it is time for their repeat scope but should they move out of state or away from the hospital they will need to remember along with their primary to repeat the procedure in a timely fashion to avoid any adverse complications. Coding Level of Care Code Est Pt Level 3 (04473) Diagnoses Tubulovillous adenoma of large intestine D12.6
[2024-08-25 14:59] VITALS: BP 110/74; PULSE 88; O2SAT 97; BMI 33.1
== END 2024-08-25 15:14 | disposition home or self-care (01) ==
LOC: HO.HGI 14:57
PROVIDERS: PCP Internal Medicine; Visit Provider Nurse Practitioner
DX: D12.6 Benign neoplasm of colon, unspecified (principal)
CPT/HCPCS: 99213